=== PATIENT | male | born 1930 | race Caucasian/White ===

== ENCOUNTER 2017-01-19 10:56 | Emergency (ER) | payer MEDICARE ==
[~2017-01-19] VITALS: Ht 188 cm; Wt 86.4 kg
[2017-01-19 11:01] VITALS: BP 103/57; PULSE 87; RESP 15; TEMP 97.6; O2SAT 97
[2017-01-19] MEDS ORDERED: DUTA1CAP2 PO (12:13)
[2017-01-19] MEDS ORDERED: LISI-515 PO (12:13)
[2017-01-19] MEDS ORDERED: ATOR10TA15 PO (12:13)
[2017-01-19] MEDS ORDERED: GLIM2TAB PO (12:13)
[2017-01-19] MEDS ORDERED: DONE10TA7 PO (12:13)
[2017-01-19] MEDS ORDERED: MEMA1TAB2 PO (12:13)
[2017-01-19] MEDS ORDERED: QUET5TAB PO (12:13)
[2017-01-19] MEDS ORDERED: ASPI81CH37 CHEW (12:13)
[2017-01-19] MEDS ORDERED: ESCI20TA PO (12:13)
[2017-01-19] MEDS ORDERED: traMADol HCL 50 MG TAB PO ONE (12:30)
[2017-01-19] MEDS ORDERED: SODIUM CHLORIDE 0.9% FLUSH 10 ML FLUSH IV FLUSH PRN (12:30)
--- NOTE | 2017-01-19 12:30 | PD ---
HPI Chief Complaint: Fall Time Seen by Provider: 12:08 Travel History International Travel<30 days: No Contact w/Intl Traveler<30days: No Traveled to known affect area: No History of Present Illness HPI 86-year-old male with history of dementia here with his stepson for evaluation of left upper quadrant abdominal pain and left-sided rib pain after a fall that occurred 4 days ago. Patient is supposed to walk with a walker, however he does not always do so. He states that he stumbled and fell to the ground. He denies head injury. Since his fall he has been having left sided rib pain and left upper quadrant abdominal pain that is moderate, worse with movement and palpation. He takes aspirin 81 mg daily. No other antiplatelets or anticoagulants. He denies head, neck, or back pain. No pain in his upper or lower extremities. PFSH Past Medical History Blood Disorders: No Cancer: No Cardiovascular Problems: Yes High Cholesterol: Yes Dementia: Yes Diabetes: Yes Patient Takes Glucophage: No Diminished Hearing: No Gastrointestinal Disorders: Yes (PARASITES TO COLON, DIVERTICULOSIS) Genitourinary: Yes Hypertension: Yes Immune Disorder: No Musculoskeletal: No Neurologic: No Psychiatric: No Respiratory: No Tetanus Vaccination: Unknown Influenza Vaccination: Yes Past Surgical History Abdominal Surgery: Yes (APPENDIX) Appendectomy: Yes Eye Surgery: Yes (CATARACTS) Oral Surgery: Yes (TONSILS/ADNOIDS) Social History Alcohol Use: Yes (Wine w/ dinner) Tobacco Use: No Substance Use: No Allergies-Medications (Allergen,Severity, Reaction): Coded Allergies: No Known Allergies (Verified , 01/19/17) Reported Meds & Prescriptions Reported Meds & Active Scripts Active Reported Glimepiride 2 Mg Tab 2 Mg PO DAILY Take with breakfast or first main meal Escitalopram (Escitalopram Oxalate) 20 Mg Tab 20 Mg PO DAILY Lisinopril 20 Mg Tab 20 Mg PO DAILY Quetiapine (Quetiapine Fumarate) 50 Mg Tab 100 Mg PO BID Donepezil 10 Mg Tab 10 Mg PO HS Atorvastatin (Atorvastatin Calcium) 10 Mg Tab 10 Mg PO HS Dutasteride 0.5 Mg Cap 0.5 Mg PO DAILY Memantine 10 Mg Tab 10 Mg PO BID Aspirin Low Dose (Aspirin) 81 Mg Chew 81 Mg CHEW DAILY Review of Systems Except as stated in HPI: all other systems reviewed are Neg Physical Exam Narrative GENERAL: Well-developed, well-nourished, awake, alert, GCS 15, no apparent distress. SKIN: Focused skin assessment warm/dry. Superficial healing abrasion to right anterior scalp which the patient reports was from a previous fall. No lacerations or ecchymosis. HEAD: Atraumatic. Normocephalic. EYES: Pupils equal and round. No scleral icterus. No injection or drainage. ENT: No nasal bleeding or discharge. Mucous membranes pink and moist. NECK: Trachea midline. No JVD. CARDIOVASCULAR: Regular rate and rhythm. RESPIRATORY: No accessory muscle use. Clear to auscultation. Breath sounds equal bilaterally. GASTROINTESTINAL: Abdomen soft, nondistended. Moderate left upper quadrant tenderness without rebound or guarding. Rest of abdomen is soft and nontender. MUSCULOSKELETAL: No obvious deformities. No clubbing. No cyanosis. No edema. Moderate left lateral/lower rib tenderness without step-off, without crepitus, without paradoxical chest wall movement. NEUROLOGICAL: Awake and alert. No obvious cranial nerve deficits. Motor grossly within normal limits. Normal speech. PSYCHIATRIC: Appropriate mood and affect; insight and judgment normal. Data Data Last Documented VS Vital Signs Date Time Temp Pulse Resp B/P (MAP) Pulse Ox O2 Delivery O2 Flow Rate FiO2 01/19/17 13:10 65 14 122/70 (87) 96 Room Air 01/19/17 11:01 97.6 Orders Orders Complete Blood Count With Diff (01/19/17 12:17) Comprehensive Metabolic Panel (01/19/17 12:17) Prothrombin Time / Inr (Pt) (01/19/17 12:17) Act Partial Throm Time (Ptt) (01/19/17 12:17) Iv Access Insert/Monitor (01/19/17 12:17) Ecg Monitoring (01/19/17 12:17) Oximetry (01/19/17 12:17) Sodium Chloride 0.9% Flush (Ns Flush) (01/19/17 12:30) Ct Brain W/O Iv Contrast(Rout) (01/19/17 ) Ct Cerv Spine W/O Contrast (01/19/17 ) Ct Thorax/ Chest W Iv Contrast (01/19/17 ) Ct Abd/Pel W Iv Contrast(Rout) (01/19/17 ) Urinalysis - C+S If Indicated (01/19/17 12:17) Tramadol (Ultram) (01/19/17 12:30) Iohexol 350 Inj (Omnipaque 350 Inj) (01/19/17 13:31) Electrocardiogram (01/19/17 ) Labs Laboratory Tests Test 01/19/17 12:30 01/19/17 14:15 White Blood Count 6.6 TH/MM3 Red Blood Count 3.97 MIL/MM3 Hemoglobin 11.9 GM/DL Hematocrit 35.4 % Mean Corpuscular Volume 89.2 FL Mean Corpuscular Hemoglobin 30.1 PG Mean Corpuscular Hemoglobin Concent 33.8 % Red Cell Distribution Width 12.2 % Platelet Count 201 TH/MM3 Mean Platelet Volume 7.8 FL Neutrophils (%) (Auto) 70.4 % Lymphocytes (%) (Auto) 14.2 % Monocytes (%) (Auto) 11.8 % Eosinophils (%) (Auto) 2.9 % Basophils (%) (Auto) 0.7 % Neutrophils # (Auto) 4.7 TH/MM3 Lymphocytes # (Auto) 0.9 TH/MM3 Monocytes # (Auto) 0.8 TH/MM3 Eosinophils # (Auto) 0.2 TH/MM3 Basophils # (Auto) 0.0 TH/MM3 CBC Comment DIFF FINAL Differential Comment Prothrombin Time 11.3 SEC Prothromb Time International Ratio 1.0 RATIO Activated Partial Thromboplast Time 27.1 SEC Blood Urea Nitrogen 24 MG/DL Creatinine 1.30 MG/DL Random Glucose 76 MG/DL Total Protein 6.5 GM/DL Albumin 3.4 GM/DL Calcium Level 8.5 MG/DL Alkaline Phosphatase 141 U/L Aspartate Amino Transf (AST/SGOT) 15 U/L Alanine Aminotransferase (ALT/SGPT) 18 U/L Total Bilirubin 0.8 MG/DL Sodium Level 138 MEQ/L Potassium Level 4.5 MEQ/L Chloride Level 104 MEQ/L Carbon Dioxide Level 29.2 MEQ/L Anion Gap 5 MEQ/L Estimat Glomerular Filtration Rate 53 ML/MIN Urine Collection Type CLEAN CATCH Urine Color YELLOW Urine Turbidity CLEAR Urine pH 6.0 Urine Specific Globe 1.030 Urine Protein NEG mg/dL Urine Glucose (UA) NEG mg/dL Urine Ketones NEG mg/dL Urine Occult Blood NEG Urine Nitrite NEG Urine Bilirubin NEG Urine Leukocyte Esterase NEG Urine Squamous Epithelial Cells 0-5 /hpf Urine Amorphous Sediment FEW Microscopic Urinalysis Comment CULT NOT INDICATED Urine Collection Time 1415 MDM Medical Decision Making Medical Screen Exam Complete: Yes Emergency Medical Condition: Yes Interpretation(s) EKG: Sinus, rate 58, leftward axis, LBBB which is old Differential Diagnosis Rib fractures, chest wall contusion, intra-abdominal trauma, intracranial trauma , cervical spine injury, pneumothorax, hemothorax Narrative Course Vital signs show heart rate 65, blood pressure 122/70, pulse ox 96% on room air , oral temp of 97.6F. CBC shows WBC 6.6, hemoglobin 11.9, hematocrit 35.4, platelets 201. CMP is unremarkable. UA is not suggestive of UTI. CT head: No acute disease. CT cervical spine: No acute disease. CT thorax: FINDINGS: Biapical parenchymal scarring identified. There is linear atelectasis in the left lower lobe and right lower lobe. Atherosclerotic calcifications are noted. No adenopathy. There is heavy calcification of the coronary arteries. The adrenal glands are normal. There are degenerative changes of the spine. No obvious fractures are seen. CONCLUSION: Atherosclerosis. Atelectasis. CT abdomen pelvis: FINDINGS: There is extensive atherosclerotic calcification of the coronary arteries. No pleural or pericardial effusions. Liver, spleen, pancreas, adrenal glands, gallbladder, left kidney unremarkable. There is a cyst of the right kidney, lobulated measuring 8 x 4.9 cm on image 42. Small fat containing inguinal hernias. Prostate, urinary bladder unremarkable. There is severe diverticulosis of the sigmoid and descending colons. There is no adenopathy or aneurysm. There are degenerative changes of the spine noted.. CONCLUSION: No acute disease. The patient and the patient's stepson were made aware of all findings and were provided a copy of his CT thorax and abdomen pelvis reports. Patient has left lateral chest wall tenderness and left upper quadrant abdominal tenderness after mechanical fall that occurred 4 days ago. I do not believe his symptoms are cardiac related. His EKG shows an old left bundle branch block. He does have extensive coronary artery calcifications, and was advised to follow-up with his primary care physician this week. His pain improved with tramadol. I told him I will give him a prescription for a few tramadol pills with caution. The patient's stepson is a former occupational rehabilitation aide, and has made sure that the house has no rugs or any other objects that the patient can trip on. Patient informed on when to return to the emergency department. They verbalized understanding and agreement with plan. Diagnosis Primary Impression: Contusion of left chest wall Qualified Codes: S20.212A - Contusion of left front wall of thorax, initial encounter Additional Impressions: Fall Qualified Codes: W19.XXXA - Unspecified fall, initial encounter Renal cyst Referrals: Primary Care Physician 3 days Additional Instructions: Follow-up with your primary care physician this week. Return to the emergency department for worsening symptoms or any other concerns. Scripts Tramadol (Tramadol) 50 Mg Tab 50 MG PO Q6H Y for PAIN, #15 TAB 0 Refills Prov: Navid Tavares MD 01/19/17 Disposition: 01 DISCHARGE HOME Condition: Stable Navid Tavares MD Jan 19, 2017 12:30
[2017-01-19 12:43] LABS: AUTOMATED NEUTROPHIL # 4.7 TH/MM3 (1.8-7.7); BASOPHIL % 0.7 % (0.0-2.0); EOSINOPHIL # 0.2 TH/MM3 (0-0.4); EOSINOPHIL % 2.9 % (0.0-4.0); HEMATOCRIT 35.4 % (39.0-51.0); HEMO FLAGS DIFF FINAL; LYMPH % 14.2 % (9.0-44.0); LYMPHOCYTE # 0.9 TH/MM3 (1.0-4.8); MEAN CELL VOLUME 89.2 FL (80.0-100.0); MEAN CORPUSCULAR HEMOGLOBIN 30.1 PG (27.0-34.0); MEAN CORPUSCULAR HGB CONC 33.8 % (32.0-36.0); MONO % 11.8 % (0.0-8.0); NEUT % 70.4 % (16.0-70.0); PLATELET COUNT 201 TH/MM3 (150-450); RED BLOOD COUNT 3.97 MIL/MM3 (4.50-5.90); RED CELL DISTRIBUTION WIDTH 12.2 % (11.6-17.2); WHITE BLOOD COUNT 6.6 TH/MM3 (4.0-11.0)
[2017-01-19 13:00] LABS: CHLORIDE 104 MEQ/L (98-107); POTASSIUM 4.5 MEQ/L (3.5-5.1); SODIUM (NA) 138 MEQ/L (136-145)
[2017-01-19 13:03] LABS: ANION GAP 5 MEQ/L (5-15); BICARBONATE 29.2 MEQ/L (21.0-32.0)
[2017-01-19 13:04] LABS: APTT (PATIENT) 27.1 SEC (24.3-30.1); BLOOD UREA NITROGEN 24 MG/DL (7-18); PROTHROMBIN TIME - PATIENT 11.3 SEC (9.8-11.6)
[2017-01-19 13:06] LABS: ALT (GPT) 18 U/L (12-78)
[2017-01-19 13:07] LABS: AST (GOT) 15 U/L (15-37); GLOMERULAR FILTRATION RATE 53 ML/MIN (>89)
[2017-01-19 13:08] LABS: TOTAL BILIRUBIN ADULT 0.8 MG/DL (0.2-1.0)
[2017-01-19 13:09] LABS: ALKALINE PHOSPHATASE 141 U/L (45-117)
[2017-01-19 13:10] VITALS: BP 122/70; PULSE 65; RESP 14; O2SAT 96
[2017-01-19] MEDS ORDERED: IOHEXOL 350 MG/ML 10 ML VIAL (for RAD DIAG) IVCONTRAST ONE (13:31)
--- NOTE | 2017-01-19 13:44 | RADRPT ---
EXAM DATE/TIME: 01/19/2017 13:19 [facility] COMPARISON: No previous studies available for comparison. INDICATIONS : Fell a few days ago. Left sided pain. RADIATION DOSE: 64.68 CTDIvol (mGy) MEDICAL HISTORY : Hypertension. Hypercholesterolemia. Diverticulosis. SURGICAL HISTORY : Appendectomy. ENCOUNTER: Initial ACUITY: 4 - 6 days PAIN SCALE: 5/10 LOCATION: Left cranial TECHNIQUE: Multiple contiguous axial images were obtained of the head. Using automated exposure control and adj ustment of the mA and/or kV according to patient size, radiation dose was kept as low as reasonably a chievable to obtain optimal diagnostic quality images. DICOM format image data is available electro nically for review and comparison. FINDINGS: There is atrophy identified and remote lacunar infarcts in the basal ganglia and right thalamus. Patc hy periventricular white matter disease, likely related to chronic microvascular ischemic disease. Th ere is no hemorrhage. No mass or acute infarct. No obvious fractures. CONCLUSION: No acute disease. Sonny Hickey MD on January 19, 2017 at 13:42 Board Certified Radiologist. This report was verified electronically.
--- NOTE | 2017-01-19 13:47 | RADRPT ---
EXAM DATE/TIME: 01/19/2017 13:25 [facility] COMPARISON: CT ABDOMEN & PELVIS W CONTRAST, January 19, 2017, 13:25. INDICATIONS : Fell a few days ago. Left sided pain. IV CONTRAST: 90 cc Omnipaque 350 (iohexol) IV ; Cumulative dose for multiple exams. RADIATION DOSE: 20.78 CTDIvol (mGy) ; Combined studies - Thorax/Abdomen/Pelvis MEDICAL HISTORY : Hypertension. Hypercholesterolemia. Diverticulosis. SURGICAL HISTORY : Appendectomy. ENCOUNTER: Initial ACUITY: 4 - 6 days PAIN SCALE: 4/10 LOCATION: Left chest TECHNIQUE: Volumetric scanning of the chest was performed. Using automated exposure control and adjustment of t he mA and/or kV according to patient size, radiation dose was kept as low as reasonably achievable to obtain optimal diagnostic quality images. DICOM format image data is available electronically for review and comparison. Follow-up recommendations for detected pulmonary nodules are based at a minimum on nodule size and pa tient risk factors according to Fleischner Society Guidelines. FINDINGS: Biapical parenchymal scarring identified. There is linear atelectasis in the left lower lobe and righ t lower lobe. Atherosclerotic calcifications are noted. No adenopathy. There is heavy calcification o f the coronary arteries. The adrenal glands are normal. There are degenerative changes of the spine. No obvious fractures are seen. CONCLUSION: Atherosclerosis. Atelectasis. Sonny Hickey MD on January 19, 2017 at 13:43 Board Certified Radiologist. This report was verified electronically.
--- NOTE | 2017-01-19 13:50 | RADRPT ---
EXAM DATE/TIME: 01/19/2017 13:25 [facility] COMPARISON: CT THORAX W CONTRAST, January 19, 2017, 13:25. INDICATIONS : Fell a few days ago. Left sided pain. IV CONTRAST: 90 cc Omnipaque 350 (iohexol) IV ; Cumulative dose for multiple exams. ORAL CONTRAST: No oral contrast ingested. RADIATION DOSE: 20.78 CTDIvol (mGy) ; Combined studies - Thorax/Abdomen/Pelvis MEDICAL HISTORY : Hypertension. Diverticulosis. Hypercholesterolemia. SURGICAL HISTORY : Appendectomy. ENCOUNTER: Initial ACUITY: 4 - 6 days PAIN SCALE: 6/10 LOCATION: Left abdomen TECHNIQUE: Volumetric scanning of the abdomen and pelvis was performed. Using automated exposure control and ad justment of the mA and/or kV according to patient size, radiation dose was kept as low as reasonably achievable to obtain optimal diagnostic quality images. DICOM format image data is available electro nically for review and comparison. FINDINGS: There is extensive atherosclerotic calcification of the coronary arteries. No pleural or pericardial effusions. Liver, spleen, pancreas, adrenal glands, gallbladder, left kidney unremarkable. There is a cyst of the right kidney, lobulated measuring 8 x 4.9 cm on image 42. Small fat containing inguinal hernias. Prostate, urinary bladder unremarkable. There is severe diverticulosis of the sigmoid and de scending colons. There is no adenopathy or aneurysm. There are degenerative changes of the spine note d.. CONCLUSION: No acute disease. 1. Sonny Hickey MD on January 19, 2017 at 13:46 Board Certified Radiologist. This report was verified electronically.
[2017-01-19 14:24] LABS: BLOOD, URINE NEG (NEG); GLUCOSE,URINE NEG (NEG); KETONE, URINE NEG (NEG); NITRITE,URINE NEG (NEG)
[2017-01-19 14:25] LABS: METHOD OF COLLECTION CLEAN CATCH; URINE COLOR YELLOW (YELLW/STRAW)
[2017-01-19 14:36] LABS: COMMENT (UR) CULT NOT INDICATED; COMMENT2 (UR) MUCOUS PRESENT; CULTURE IF INDICATED CULT NOT INDICATED; SQUAMOUS EPITHELIAL CELL URINE 0-5 /hpf (0-5)
--- NOTE | 2017-01-19 14:41 | RADRPT ---
EXAM DATE/TIME: 01/19/2017 13:19 [facility] COMPARISON: No previous studies available for comparison. INDICATIONS : Fell a few days ago. Left sided pain. RADIATION DOSE: 26.74 CTDIvol (mGy) MEDICAL HISTORY : Hypertension. Hypercholesterolemia. Diverticulosis. SURGICAL HISTORY : Appendectomy. ENCOUNTER: Initial ACUITY: 4 - 6 days PAIN SCALE: 5/10 LOCATION: Left neck TECHNIQUE: Volumetric scanning of the cervical spine was performed. Multiplanar reconstructions in the sagittal, coronal and oblique axial planes were performed. Using automated exposure control and adjustment o f the mA and/or kV according to patient size, radiation dose was kept as low as reasonably achievable to obtain optimal diagnostic quality images. DICOM format image data is available electronically f or review and comparison. FINDINGS: There is normal alignment. No prevertebral soft tissue swelling. The odontoid process is intact. The lateral masses of C1 align appropriately with C2. There are mild to moderate facet hypertrophic ware es seen bilaterally greatest at C4-5 and C3-4. Moderate disc space narrowing at C5-6 and C6-7 identif y with mild multilevel osteophyte formation. The cervicothoracic junction is approximated. There are no compression deformities. No fracture or listhesis. CONCLUSION: No acute disease. Sonny Hickey MD on January 19, 2017 at 14:36 Board Certified Radiologist. This report was verified electronically.
[2017-01-19] MEDS ORDERED: TRAM50TA PO (14:50)
[2017-01-19 14:55] VITALS: BP 118/76; PULSE 88; RESP 16; O2SAT 95
--- NOTE | 2017-01-20 20:00 | EKG ---
Date Performed: 01/19/2017 Time Performed: 14:19:43 PTAGE: 86 years EKG: SINUS BRADYCARDIA LEFT BUNDLE BRANCH BLOCK ABNORMAL ECG PREVIOUS TRACING : 01/19/2017 14.19 Compared to prior tracing no significant change DOCTOR: José Antonio Wilder Interpretating Date/Time 01/21/2017 06:55:20
== END 2017-01-19 15:00 | disposition home or self-care (01) ==
LOC: PHED 10:56
DX: S20.212A Contusion of left front wall of thorax, initial encounter (principal); N28.1 Cyst of kidney, acquired; I10 Essential (primary) hypertension; W01.0XXA Fall on same level from slipping, tripping and stumbling without subsequent striking against object, initial encounter
CPT/HCPCS: 70450; 71260; 72125; 74177; 80053; 81001; 85025; 85610; 85730; 93005; 99285; Q9967

== ENCOUNTER 2017-06-01 09:54 | Inpatient (IN) | payer MEDICARE ==
[~2017-06-01] VITALS: Ht 188 cm; Wt 90.1 kg
[~2017-06-01 09:54] MED LIST: ASPI81CH6 CHEW; ATOR10TA15 PO; DONE10TA7 PO; DUTA1CAP2 PO; ESCI20TA PO; GLIM2TAB PO; LISI-515 PO; MEMA1TAB2 PO; QUET5TAB PO; TRAM50TA PO
[2017-06-01 10:14] VITALS: BP 118/58; PULSE 62; RESP 18; TEMP 97.8; O2SAT 98
[2017-06-01 10:15] VITALS: O2SAT 98
[2017-06-01] MEDS ORDERED: SODIUM CHLORIDE 0.9% FLUSH 10 ML FLUSH IVF PRN (10:15)
[2017-06-01] MEDS ORDERED: ONDANSETRON HCL 4 MG/2 ML VIAL IVP ONE (10:15)
[2017-06-01] MEDS ORDERED: MORPHINE SULFATE 2 MG/ML INJ IV PUSH ONE (10:15)
--- NOTE | 2017-06-01 10:15 | PD ---
HPI Chief Complaint: Fall Time Seen by Provider: 10:09 Travel History International Travel<30 days: No Contact w/Intl Traveler<30days: No Traveled to known affect area: No History of Present Illness HPI S/P FALL WHILE AT HOME, TRIP AND FALL, NO LOC, LANDED ON RIGHT HIP AREA AND PAINFUL TO MOVE, EMS HAD TO USE [facility] TO TRANSPORT, PATIENT DECLINED PAIN MEDICATION EN ROUTE. PFSH Past Medical History Blood Disorders: No Cancer: No Cardiovascular Problems: Yes High Cholesterol: Yes Dementia: Yes Diabetes: Yes Diminished Hearing: No Gastrointestinal Disorders: Yes (PARASITES TO COLON, DIVERTICULOSIS) Genitourinary: Yes Hypertension: Yes Immune Disorder: No Musculoskeletal: No Neurologic: No Psychiatric: No Respiratory: No Past Surgical History Abdominal Surgery: Yes (APPENDIX) Appendectomy: Yes Eye Surgery: Yes (CATARACTS) Oral Surgery: Yes (TONSILS/ADNOIDS) Social History Alcohol Use: Yes (Wine w/ dinner) Tobacco Use: No Substance Use: No Allergies-Medications (Allergen,Severity, Reaction): Coded Allergies: No Known Allergies (Verified , 01/19/17) Reported Meds & Prescriptions Reported Meds & Active Scripts Active Tramadol (Tramadol HCl) 50 Mg Tab 50 Mg PO Q6H PRN Reported Glimepiride 2 Mg Tab 2 Mg PO DAILY Take with breakfast or first main meal Escitalopram (Escitalopram Oxalate) 20 Mg Tab 20 Mg PO DAILY Lisinopril 20 Mg Tab 20 Mg PO DAILY Quetiapine (Quetiapine Fumarate) 50 Mg Tab 100 Mg PO BID Donepezil 10 Mg Tab 10 Mg PO HS Atorvastatin (Atorvastatin Calcium) 10 Mg Tab 10 Mg PO HS Dutasteride 0.5 Mg Cap 0.5 Mg PO DAILY Memantine 10 Mg Tab 10 Mg PO BID Aspirin Low Dose (Aspirin) 81 Mg Chew 81 Mg CHEW DAILY Review of Systems Except as stated in HPI: all other systems reviewed are Neg Musculoskeletal: Positive: Limited ROM, Pain (RT HIP) Physical Exam Narrative GENERAL: SKIN: Warm and dry. HEAD: Atraumatic. Normocephalic. EYES: Pupils equal and round. No scleral icterus. No injection or drainage. ENT: No nasal bleeding or discharge. Mucous membranes pink and moist. NECK: Trachea midline. No JVD. CARDIOVASCULAR: Regular rate and rhythm. RESPIRATORY: No accessory muscle use. Clear to auscultation. Breath sounds equal bilaterally. GASTROINTESTINAL: Abdomen soft, non-tender, nondistended. Hepatic and splenic margins not palpable. MUSCULOSKELETAL: Extremities without clubbing, cyanosis, or edema. EXTERNALLY ROTATED RT LE, DP PULSES WNL AND EQUAL BILATERALLY. NEUROLOGICAL: Awake and alert. No obvious cranial nerve deficits. Motor grossly within normal limits. Five out of 5 muscle strength in the arms and legs. Normal speech. PSYCHIATRIC: Appropriate mood and affect; insight and judgment normal. Data Data Orders Orders Complete Blood Count With Diff (06/01/17 10:10) Comprehensive Metabolic Panel (06/01/17 10:10) Prothrombin Time / Inr (Pt) (06/01/17 10:10) Act Partial Throm Time (Ptt) (06/01/17 10:10) Urinalysis - C+S If Indicated (06/01/17 10:10) Chest, Single Ap (06/01/17 10:10) Hip, Uni(Ap&Lat) W Ap Pelvis (06/01/17 10:10) Iv Access Insert/Monitor (06/01/17 10:10) Urinary Catheter Insert/Apply (06/01/17 10:10) Oximetry (06/01/17 10:10) Ecg Monitoring (06/01/17 10:10) Morphine Inj (Morphine Inj) (06/01/17 10:15) Ondansetron Inj (Zofran Inj) (06/01/17 10:15) Sodium Chloride 0.9% Flush (Ns Flush) (06/01/17 10:15) MDM Medical Decision Making Medical Screen Exam Complete: Yes Emergency Medical Condition: Yes Medical Record Reviewed: Yes Blaise Reed MD Jun 01, 2017 10:15
[2017-06-01 10:30] LABS: AUTOMATED NEUTROPHIL # 6.6 TH/MM3 (1.8-7.7); BASOPHIL % 0.4 % (0.0-2.0); EOSINOPHIL # 0.2 TH/MM3 (0-0.4); EOSINOPHIL % 2.2 % (0.0-4.0); HEMATOCRIT 34.2 % (39.0-51.0); LYMPH % 11.7 % (9.0-44.0); MEAN CELL VOLUME 91.2 FL (80.0-100.0); MEAN CORPUSCULAR HEMOGLOBIN 32.1 PG (27.0-34.0); MEAN CORPUSCULAR HGB CONC 35.2 % (32.0-36.0); MEAN PLATELET VOLUME 8.7 FL (7.0-11.0); MONO % 7.4 % (0.0-8.0); MONOCYTE # 0.6 TH/MM3 (0-0.9); NEUT % 78.3 % (16.0-70.0); PLATELET COUNT 197 TH/MM3 (150-450); RED BLOOD COUNT 3.75 MIL/MM3 (4.50-5.90); RED CELL DISTRIBUTION WIDTH 13.8 % (11.6-17.2); WHITE BLOOD COUNT 8.5 TH/MM3 (4.0-11.0)
[2017-06-01] MEDS ORDERED: QUET5TAB PO (10:36)
[2017-06-01 10:42] LABS: ALBUMIN 3.5 GM/DL (3.4-5.0); AST (GOT) 15 U/L (15-37); BICARBONATE 25.9 MEQ/L (21.0-32.0); BLOOD UREA NITROGEN 31 MG/DL (7-18); CALCIUM 8.6 MG/DL (8.5-10.1); CHLORIDE 106 MEQ/L (98-107); CREATININE 1.61 MG/DL (0.60-1.30); GLOMERULAR FILTRATION RATE 41 ML/MIN (>89); GLUCOSE,RANDOM 141 MG/DL (74-106); SODIUM (NA) 139 MEQ/L (136-145)
[2017-06-01 10:43] LABS: ALT (GPT) 17 U/L (12-78)
[2017-06-01 10:45] LABS: ALKALINE PHOSPHATASE 113 U/L (45-117); INTERNATIONAL NORMALIZED RATIO 1.1 RATIO; PROTHROMBIN TIME - PATIENT 10.9 SEC (9.8-11.6); TOTAL BILIRUBIN ADULT 0.6 MG/DL (0.2-1.0); TOTAL PROTEIN 6.4 GM/DL (6.4-8.2)
[2017-06-01 11:00] VITALS: BP 116/58; PULSE 68; RESP 18; O2SAT 98
[2017-06-01 11:22] LABS: BILIRUBIN, URINE NEG (NEG); BLOOD, URINE NEG (NEG); GLUCOSE,URINE TRACE mg/dL (NEG); KETONE, URINE NEG (NEG); NITRITE,URINE NEG (NEG); PH, URINE 5.5 (5.0-8.5); URINE COLOR YELLOW (YELLW/STRAW); URINE LEUKOCYTE ESTERASE NEG (NEG)
--- NOTE | 2017-06-01 11:30 | RADRPT ---
EXAM DATE/TIME: 06/01/2017 10:29 [facility] COMPARISON: No previous studies available for comparison. INDICATIONS : Right hip pain due to fall. MEDICAL HISTORY : Hypertension. Hypercholesterolemia. Diverticulosis. SURGICAL HISTORY : Appendectomy. ENCOUNTER: Initial ACUITY: 1 day PAIN SCORE: 8/10 LOCATION: Right Hip. FINDINGS: There is a complete intertrochanteric fracture with avulsed lesser trochanter. CONCLUSION: Intertrochanteric fracture on the right. Peggy Parrish MD on June 01, 2017 at 11:28 Board Certified Radiologist. This report was verified electronically.
[2017-06-01] MEDS ORDERED: SODIUM CHLORIDE 0.9% FLUSH 10 ML FLUSH IV FLUSH PRN (11:45)
[2017-06-01] MEDS ORDERED: NALOXONE HCL 0.4 MG/ML AMP IV PUSH PRN (11:45)
[2017-06-01 12:00] VITALS: BP 117/52; PULSE 65; RESP 16; TEMP 97; O2SAT 97
--- NOTE | 2017-06-01 12:00 | RADRPT ---
EXAM DATE/TIME: 06/01/2017 10:24 [facility] COMPARISON: No previous studies available for comparison. INDICATIONS : Chest pain deu to fall. MEDICAL HISTORY : Hypertension. Hypercholesterolemia. Diverticulosis. SURGICAL HISTORY : Appendectomy. ENCOUNTER: Initial ACUITY: 1 day PAIN SCORE: 8/10 LOCATION: Bilateral chest FINDINGS: The cardiac silhouette is enlarged in transverse diameter. The lungs are free of acute parenchymal op acity. No effusions are identified. There is prominence of the aortic knob is with calcification luis carlos acteristic of atherosclerotic vascular disease. CONCLUSION: Cardiomegaly. No acute pulmonary disease. Claudio Boyce MD on June 01, 2017 at 11:43 Board Certified Radiologist. This report was verified electronically.
--- NOTE | 2017-06-01 15:06 | HHI.HP ---
[facility] ZITA Eaton Admission Diagnosis RIGHT INTERTROCHANTERIC FX Diagnoses: Travel History International Travel<30 Days: No Contact w/Intl Traveler <30 Da: No Traveled to Known Affected Are: No History of Present Illness hx from patient, ER MD communication and review of med records i have dementia but i am usually ok but now has been falling - at least 4-5x now - in past 3 months this time i could not get up, usually i could pain at right hip gets dizziness before falls dizziness is usually when he sits up from a sitting position. no ear pain/ ringing/ no discharge no fever no spinning of rooms lives with elderly , stepson usually checks in on them little bit of redness in urine this last time- he thinks Review of Systems Except as stated in HPI: all other systems reviewed are Neg Past Family Social History Past Medical History htn dm hyperlipidemia bph anxiety/depression dementia Past Surgical History appendectomy left patella fx Allergies: Coded Allergies: No Known Allergies (Verified Allergy, Unknown, 06/01/17) Family History adopted no family hx that he knows of Social History quit smoking at age 42yo no drinking etoh heavily- only one glass of white win a day no drugs lives with , step son has been helping them out no longer driving, a neurologist reported him to police and his license taken away according to him Physical Exam Vital Signs Vital Signs Date Time Temp Pulse Resp B/P (MAP) Pulse Ox O2 Delivery O2 Flow Rate FiO2 06/01/17 12:06 06/01/17 12:00 97.0 65 16 117/52 (73) 97 06/01/17 11:00 68 18 116/58 (77) 98 Room Air 06/01/17 10:15 98 Room Air 06/01/17 10:14 97.8 62 18 118/58 (78) 98 Room Air Physical Exam GENERAL: This is a well-nourished, well-developed patient, in no apparent distress. SKIN: No rashes, ecchymoses or lesions. Cool and dry. HEAD: Atraumatic. Normocephalic. No temporal or scalp tenderness. EYES: No scleral icterus. No injection or drainage. ENT: Nose without bleeding, purulent drainage or septal hematoma. Airway patent. NECK: Trachea midline. No JVD CARDIOVASCULAR: Regular rate and rhythm without murmurs, gallops, or rubs. RESPIRATORY: Clear to auscultation. Breath sounds equal bilaterally. No wheezes , rales, or rhonchi. GASTROINTESTINAL: Abdomen soft, non-tender, nondistended. No guarding. MUSCULOSKELETAL: Extremities without clubbing, cyanosis, or edema. No calf tenderness. pain at right hip on movement NEUROLOGICAL: Awake and alert. Motor and sensory grossly within normal limits. Normal speech Laboratory Laboratory Tests Test 06/01/17 10:15 06/01/17 10:45 White Blood Count 8.5 Red Blood Count 3.75 Hemoglobin 12.0 Hematocrit 34.2 Mean Corpuscular Volume 91.2 Mean Corpuscular Hemoglobin 32.1 Mean Corpuscular Hemoglobin Concent 35.2 Red Cell Distribution Width 13.8 Platelet Count 197 Mean Platelet Volume 8.7 Neutrophils (%) (Auto) 78.3 Lymphocytes (%) (Auto) 11.7 Monocytes (%) (Auto) 7.4 Eosinophils (%) (Auto) 2.2 Basophils (%) (Auto) 0.4 Neutrophils # (Auto) 6.6 Lymphocytes # (Auto) 1.0 Monocytes # (Auto) 0.6 Eosinophils # (Auto) 0.2 Basophils # (Auto) 0.0 CBC Comment DIFF FINAL Differential Comment Prothrombin Time 10.9 Prothromb Time International Ratio 1.1 Activated Partial Thromboplast Time 20.5 Blood Urea Nitrogen 31 Creatinine 1.61 Random Glucose 141 Total Protein 6.4 Albumin 3.5 Calcium Level 8.6 Alkaline Phosphatase 113 Aspartate Amino Transf (AST/SGOT) 15 Alanine Aminotransferase (ALT/SGPT) 17 Total Bilirubin 0.6 Sodium Level 139 Potassium Level 5.1 Chloride Level 106 Carbon Dioxide Level 25.9 Anion Gap 7 Estimat Glomerular Filtration Rate 41 Urine Color YELLOW Urine Turbidity CLEAR Urine pH 5.5 Urine Specific [place] 1.017 Urine Protein NEG Urine Glucose (UA) TRACE Urine Ketones NEG Urine Occult Blood NEG Urine Nitrite NEG Urine Bilirubin NEG Urine Urobilinogen LESS THAN 2.0 Urine Leukocyte Esterase NEG Urine RBC 1 Urine WBC LESS THAN 1 Microscopic Urinalysis Comment CATH-CULT NOT IND Result Diagram: 06/01/17 1015 06/01/17 1015 Imaging Last 48 hours Impressions Hip and Pelvis X-Ray 06/01/17 1010 Signed Impressions: Service Date/Time: Thursday, June 01, 2017 10:29 - CONCLUSION: Intertrochanteric fracture on the right. Peggy Parrish MD Chest X-Ray 06/01/17 1010 Signed Impressions: Service Date/Time: Thursday, June 01, 2017 10:24 - CONCLUSION: Cardiomegaly. No acute pulmonary disease. MD Mey Lay VTE Risk Assessment Caprini VTE Risk Assessment: Mod/High Risk (score >= 2) Caprini Risk Assessment Model Point Value = 1 Point Value = 2 Point Value = 3 Point Value = 5 Age 41-60 Minor surgery BMI > 25 kg/m2 Swollen legs Varicose veins or History of unexplained or recurrent spontaneous Oral contraceptives or hormone replacement Sepsis (< 1 month) Serious lung disease, including pneumonia (< 1 month) Abnormal pulmonary function Acute myocardial infarction Congestive heart failure (< 1 month) History of inflammatory bowel disease Medical patient at bed rest Age 61-74 Arthroscopic surgery Major open surgery (> 45 min) Laparoscopic surgery (> 45 min) Malignancy Confined to bed (> 72 hours) Immobilizing plaster cast Central venous access Age >= 75 History of VTE Family history of VTE Factor V Leiden Prothrombin [id number] Lupus anticoagulant Anticardiolipin antibodies Elevated serum homocysteine Heparin-induced thrombocytopenia Other congenital or acquired thrombophilia Stroke (< 1 month) Elective arthroplasty Hip, pelvis, or leg fracture Acute spinal cord injury (< 1 month) Prophylaxis Regimen Total Risk Factor Score Risk Level Prophylaxis Regimen 0-1 Low Early ambulation 2 Moderate Order ONE of the following: *Sequential Compression Device (SCD) *Heparin 5000 units SQ BID 3-4 Higher Order ONE of the following medications: *Heparin 5000 units SQ TID *Enoxaparin/Lovenox 40 mg SQ daily (WT < 150 kg, CrCl > 30 mL/min) *Enoxaparin/Lovenox 30 mg SQ daily (WT < 150 kg, CrCl > 10-29 mL/min) *Enoxaparin/Lovenox 30 mg SQ BID (WT < 150 kg, CrCl > 30 mL/min) AND/OR *Sequential Compression Device (SCD) 5 or more Highest Order ONE of the following medications: *Heparin 5000 units SQ TID (Preferred with Epidurals) *Enoxaparin/Lovenox 40 mg SQ daily (WT < 150 kg, CrCl > 30 mL/min) *Enoxaparin/Lovenox 30 mg SQ daily (WT < 150 kg, CrCl > 10-29 mL/min) *Enoxaparin/Lovenox 30 mg SQ BID (WT < 150 kg, CrCl > 30 mL/min) AND *Sequential Compression Device (SCD) Assessment and Plan Assessment and Plan Impression: s/p fall right hip fx dizziness - r/o orthostatic lbbb on ekg- reviewed old ekg from december 2016- not new, was present then htn dm hyperlipidemia bph anxiety/depression dementia Plan: ortho consulted npo past midnight start d5 past midnight does not want pain meds hold antihypertensives pain control with tramadol resume other meds OR In am DVT Prophylaxis chemically post op, for now SCD Discussed Condition With patient, ER MD, nursing staff Physician Certification 2 Midnight Certification Type: Admission for Inpatient Services Order for Inpatient Services The services are ordered in accordance with Medicare regulations or non- Medicare payer requirements, as applicable. In the case of services not specified as inpatient-only, they are appropriately provided as inpatient services in accordance with the 2-midnight benchmark. Estimated LOS (days): 3 days is the estimated time the patient will need to remain in the hospital, assuming treatment plan goals are met and no additional complications. Post-Hospital Plan: Not yet determined Bobo Villa MD Jun 01, 2017 15:06
[2017-06-01] MEDS ORDERED: DEXTROSE 50% IN WATER 50 ML VIAL(D50) IV PUSH PRN (15:15)
[2017-06-01] MEDS ORDERED: ACETAMINOPHEN 325 MG TAB PO PRN (15:15)
[2017-06-01] MEDS ORDERED: traMADol HCL 50 MG TAB PO PRN (15:15)
[2017-06-01] MEDS ORDERED: GLUCAGON 1 MG/ML VIAL OTHER PRN (15:15)
[2017-06-01 15:45] VITALS: BP 96/57; PULSE 83; RESP 17; TEMP 98; O2SAT 98
[2017-06-01 20:00] VITALS: BP 106/56; PULSE 84; RESP 20; TEMP 98.9; O2SAT 94
[2017-06-01] MEDS ORDERED: LACTATED RINGER'S 1000 ML IV PRN (21:45)
[2017-06-01] MEDS ORDERED: POVIDONE IODINE 5% (ANTISEPSIS KIT) 4 APPLICATIONS EACH NARE PRN (21:45)
[2017-06-01] MEDS ORDERED: SODIUM CHLORID 0.9% 500 ML IV PRN (21:45)
[2017-06-01] MEDS ORDERED: CHLORHEXIDINE GLUCONATE 2 % 1 PACK (2 CLOTHS) TOPICAL PRN (21:45)
[2017-06-01] MEDS: ATORVASTATIN 10 MG TAB PO SCH (23:31)
[2017-06-01] MEDS: MEMANTINE HCL 10 MG TAB PO SCH (23:31)
[2017-06-01] MEDS: DONEPEZIL HCL 5 MG TAB PO SCH (23:31)
[2017-06-01] MEDS: SODIUM CHLORIDE 0.9% FLUSH 10 ML FLUSH IV FLUSH SCH (23:32)
[2017-06-01] MEDS ORDERED: DEXT 5%-NACL 0.45% 1000 ML INJ 1,000 ML IV SCH (23:55)
[2017-06-02] VITALS (9 sets, daily range): BP systolic 77–113; BP diastolic 46–71; PULSE 68–105; RESP 16–20; TEMP 96.3–99.8; O2SAT 92–98
[2017-06-02 05:48] LABS: AUTOMATED NEUTROPHIL # 8.7 TH/MM3 (1.8-7.7); BASOPHIL % 0.3 % (0.0-2.0); EOSINOPHIL # 0.1 TH/MM3 (0-0.4); EOSINOPHIL % 0.8 % (0.0-4.0); HEMATOCRIT 29.3 % (39.0-51.0); HEMOGLOBIN 10.2 GM/DL (13.0-17.0); LYMPH % 9.3 % (9.0-44.0); MEAN CELL VOLUME 90.8 FL (80.0-100.0); MEAN CORPUSCULAR HEMOGLOBIN 31.6 PG (27.0-34.0); MEAN CORPUSCULAR HGB CONC 34.8 % (32.0-36.0); MEAN PLATELET VOLUME 8.8 FL (7.0-11.0); MONO % 12.7 % (0.0-8.0); MONOCYTE # 1.4 TH/MM3 (0-0.9); NEUT % 76.9 % (16.0-70.0); PLATELET COUNT 176 TH/MM3 (150-450); RED BLOOD COUNT 3.23 MIL/MM3 (4.50-5.90); RED CELL DISTRIBUTION WIDTH 13.7 % (11.6-17.2); WHITE BLOOD COUNT 11.3 TH/MM3 (4.0-11.0)
[2017-06-02 06:07] LABS: BICARBONATE 26.4 MEQ/L (21.0-32.0); CALCIUM 8.1 MG/DL (8.5-10.1); CREATININE 1.65 MG/DL (0.60-1.30)
--- NOTE | 2017-06-02 06:34 | PD.ORT.PN ---
Subjective Subjective Remarks Slip and fall at home. Right hip pain. Unable to ambulate. No other associated complaints Objective Vitals Vital Signs Date Time Temp Pulse Resp B/P (MAP) Pulse Ox O2 Delivery O2 Flow Rate FiO2 06/02/17 06:17 98.7 68 20 107/71 (83) 95 06/02/17 04:00 97.3 87 20 113/54 (73) 93 106/57 (73) 06/02/17 00:00 99.8 86 20 108/58 (75) 94 06/01/17 20:00 98.9 84 20 106/56 (73) 94 06/01/17 15:45 98.0 83 17 96/57 (70) 98 06/01/17 12:06 06/01/17 12:00 97.0 65 16 117/52 (73) 97 06/01/17 11:00 68 18 116/58 (77) 98 Room Air 06/01/17 10:15 98 Room Air 06/01/17 10:14 97.8 62 18 118/58 (78) 98 Room Air I/O 06/01/17 06/01/17 06/01/17 06/02/17 06/02/17 06/02/17 07:00 15:00 23:00 07:00 15:00 23:00 Intake Total 0 ml 300 ml Output Total 600 ml 300 ml 800 ml Balance -600 ml 0 ml -800 ml Intake Oral 0 ml 300 ml Output Urine Total 600 ml 300 ml 800 ml # Bowel Movements 0 0 Result Diagram: 06/02/17 0458 06/02/17 0458 Other Results Laboratory Tests Test 06/01/17 10:15 Prothromb Time International Ratio 1.1 RATIO Prothrombin Time 10.9 SEC (9.8-11.6) Imaging Last 24 hours Impressions Hip and Pelvis X-Ray 06/01/17 1010 Signed Impressions: Service Date/Time: Thursday, June 01, 2017 10:29 - CONCLUSION: Intertrochanteric fracture on the right. Peggy Parrish MD Chest X-Ray 06/01/17 1010 Signed Impressions: Service Date/Time: Thursday, June 01, 2017 10:24 - CONCLUSION: Cardiomegaly. No acute pulmonary disease. Claudio Boyce MD Objective Remarks Bilateral upper extremities: Full range of motion and neurovascularly intact Left lower extremity full range of motion and neurovascularly intact Right lower extremity: Pain to palpation over hip. Pain with any movement of hip. Skin is intact. No pain with knee or ankle range of motion. Distally intact sensation good capillary refills. Active dorsiflexion and plantar flexion of foot Assessment & Plan Assessment and Plan Right intertrochanteric femur fracture Nothing by mouth Surgery this morning for reduction of right femur intramedullary fazal fixation Sign consents Lan White Jr. Jun 02, 2017 06:34
[2017-06-02] MEDS ORDERED: HYDR-3580 PO (06:36)
[2017-06-02] MEDS ORDERED: CALCTAB19 PO (06:36)
[2017-06-02] MEDS ORDERED: VITA500012 PO (06:36)
[2017-06-02] MEDS ORDERED: XARE10TA PO (06:36)
[2017-06-02] MEDS ORDERED: WALKER/ADULT/FO1 MIS (06:36)
[2017-06-02] MEDS ORDERED: ACETAMINOPHEN 1000 MG/100 ML 100 ML IV ONE (06:48)
[2017-06-02] MEDS ORDERED: VANCOMYCIN HCL 1000 MG VIAL ONE (07:12)
[2017-06-02] MEDS ORDERED: ceFAZolin 2 GM PREMIX 50 ML ONE (07:12)
[2017-06-02] MEDS ORDERED: SODIUM CHLOR 0.9% 250 ML INJ 250 ML ONE (07:13)
[2017-06-02] MEDS ORDERED: BUPIVACAINE/EPINEPHRINE 0.25% PF 30 ML VIAL ONE (07:13)
[2017-06-02] MEDS ORDERED: FAMOTIDINE 20 MG/2 ML VIAL ONE (07:18)
--- NOTE | 2017-06-02 07:35 | MB ---
cc: YAJAIRA CARLISLE DATE OF ADMISSION 06/01/2017 DATE OF CONSULTATION 06/02/2017 REASON FOR CONSULTATION Right hip intertrochanteric fracture. CONSULTING PHYSICIAN Dr. Pato Falk. HISTORY Angel is an 87-year-old male who had a fall. He states that he has had multiple falls in the last three months. After this fall he had immediate right hip pain. He is unable to stand or ambulate. He denies dizziness, syncope or loss of consciousness. He lives at home with his . He is awake but does have some early dementia. His only complaint is his right hip. The pain is worse with movement. PAST MEDICAL HISTORY ILLNESSES 1. Hypertension. 2. Diabetes. 3. High cholesterol. 4. Early dementia. 5. Depression. 6. Anxiety. 7. BPH. SURGERIES 1. Appendectomy. 2. Left patella ORIF. ALLERGIES No known drug allergies. FAMILY HISTORY The patient was adopted. He does not know his family history. SOCIAL HISTORY The patient quit smoking at age 42. He drinks occasional wine. He denies drug use. Lives at home with his . REVIEW OF SYSTEMS The patient denies headache, visual changes, neck pain, chest pain, shortness of breath, abdominal pain, nausea, vomiting, recent weight loss, numbness or tingling of extremities. He complains of right hip pain. The pain is worse with movement. PHYSICAL EXAMINATION GENERAL: The patient is a thin, 87-year-old male. He is in no acute distress. He is awake. He is thin but appears well-developed and well-nourished. VITAL SIGNS: Temperature 98.7, pulse 68, respirations 20, blood pressure 107/71, O2 sat 95% on room air. HEAD: The patient is normocephalic. Pupils are equal. NECK: Soft, nontender. Trachea is midline. ABDOMEN: Soft, nontender, nondistended. EXTREMITIES: Examination of the bilateral upper extremities reveals no pain with shoulder, elbow or wrist motion. He has intact sensation in all fingers. He has good capillary refill of all fingers. Skin is intact in both hands. Radial pulses are palpable. Examination of the left leg reveals no pain with hip, knee or ankle motion. Skin is intact. Dorsalis pedis pulse is palpable. Sensation is intact. Examination of the right leg reveals pain with any hip motion. He has minimal tenderness around his knee, tibia and ankle. Skin is intact. Dorsalis pedis pulses palpable. Sensation is intact. X-RAYS X-rays of the right hip were reviewed. X-rays reveal a displaced right hip intertrochanteric fracture. IMPRESSION 1. Displaced right hip intertrochanteric fracture. 2. Hypertension. 3. Early dementia. PLAN The treatment options were discussed with the patient. At this point I would recommend reduction and intramedullary fixation of the right femur. The risk of surgery includes bleeding, infection, injury to arteries, nerves or blood vessels, nonunion, malunion, avascular necrosis, painful hardware as well as medical complications including blood clot, stroke, heart attack and . All questions were answered. I will plan on surgery today. A mid-level provider in my office, nurse practitioner or PA, may see this patient on a follow-up basis and continue to implement the objective of this plan including: Starting or adjusting medications, injections of muscle, tendon, bursa or joints, cast application, orthotic or brace application, physical therapy, further radiographic studies including x-ray, MRI, CT, ultrasounds or bone scan, vascular studies, neurologic studies, or other specialist consultations, and proceeding with surgical management as appropriate. MD KYLEE Rios/UMBERTO /6:53 AM /7:12 AM
--- NOTE | 2017-06-02 08:13 | PD.OP ---
cc: Filiberto Hall MD Operative Report Date of Surgery: Jun 02, 2017 Preoperative Diagnosis: Right hip intertrochanteric fracture Postoperative Diagnosis: Procedure: Right hip reduction and intramedullary nail fixation Surgeon: Filiberto Hall Stonecutter Apprentice Hand(s): MICHAEL Nesbitt PA-C The surgical procedure was assisted by my physician chemistry research assistant. My P.A. presence was necessary throughout this case for the manipulation and positioning of the surgical extremity. My P.A. was assisting me throughout the duration of this procedure. The skill set of a physician chemistry research assistant was medically necessary to complete this procedure. During the surgical case the surgical device sales representative was working at the back table and the physician chemistry research assistant was directly assisting me. Operation and Findings: Implants used: [12]mm 130 Synthes TFNA short troch nail Plan of activity: Weight-bear as tolerated Patient was seen and evaluated preoperatively. The patient has significant hip pain from intertrochanteric hip fracture. The risk and benefits of surgery were discussed in depth with the patient to include bleeding infection nonunion malunion and need for hip replacement painful hardware as well as medical competitions including but not stroke heart attack and . Informed consent was obtained. Operative site was marked. Patient was brought to the operating room and placed on fracture table. IV sedation was administered by anesthesiologist. Timeout procedure was performed. Hip and leg were prepped with alcohol followed by DuraPrep and draped in the usual sterile fashion. IV antibiotics were given prior to incision. Procedure began with reduction of fracture. Traction was applied. The leg was manipulated to achieve reduction. Excellent reduction was achieved. Fluoroscopy was used to confirm reduction. A three inch incision was made proximal to the trochanter. Subcutaneous tissue was dissected bluntly. Guidepin was placed at the tip of the trochanter and advanced into the femoral canal. Fluoroscopy confirmed appropriate guidepin placement. A opening reamer was placed over the guidepin. The Synthes TFNA nail was attached to the insertion handle. Nail was now placed through the tip of the trochanter into the femoral canal. Fluoroscopy confirmed appropriate nail placement. A second incision was made over the lateral thigh. Cannulas were placed through the insertion handle down to the femur. Guidepin was now placed through the femoral nail into the center of the femoral head. Fluoroscopy confirmed appropriate guidepin placement. Screw length was measured. Cannulated drill was placed over the guidepin. Appropriate length lag screw was now placed. Traction was released and compression was applied. The set screw was now tightened in dynamic mode. Using the insertion handle as a guide a distal interlocking screw was drilled and placed. Final fluoroscopy revealed well aligned fracture with well-placed hardware. Incision was closed with 3-0 Vicryl and rigo. Sterile dressings were applied. Patient was awakened and transferred to recovery room. Filiberto Hall MD Jun 02, 2017 08:12
[2017-06-02] MEDS ORDERED: DO NOT ADM ANY ANTICOAGULANT DRUGS PRN (08:34)
[2017-06-02] MEDS ORDERED: diphenhydrAMINE HCL 25 MG CAP PO PRN (08:45)
[2017-06-02] MEDS ORDERED: MORPHINE SULFATE 2 MG/ML INJ IV PUSH PRN (08:45)
[2017-06-02] MEDS: QUEtiapine FUMARATE 25 MG TAB PO SCH (09:00)
[2017-06-02] MEDS: ESCITALOPRAM OXALATE 20 MG TAB PO SCH (09:00)
[2017-06-02] MEDS: MEMANTINE HCL 10 MG TAB PO SCH ×2 (09:00→22:09)
[2017-06-02] MEDS: FINASTERIDE 5 MG TAB PO SCH (09:00)
[2017-06-02] MEDS: SODIUM CHLORIDE 0.9% FLUSH 10 ML FLUSH IV FLUSH SCH ×2 (09:00→22:09)
--- NOTE | 2017-06-02 11:18 | RADRPT ---
EXAM DATE/TIME: 06/02/2017 08:07 [place] COMPARISON: No previous studies available for comparison. INDICATIONS : Right hip fracture- ORIF right hip trochnail. MEDICAL HISTORY : None. SURGICAL HISTORY : None. ENCOUNTER: Initial ACUITY: 1 day PAIN SCORE: Non-responsive. LOCATION: Right Hip FINDINGS: Anatomic alignment following open reduction and internal fixation of the right hip fracture. CONCLUSION: Anatomic alignment. Varun Flores MD FACR on June 02, 2017 at 11:16 Board Certified Radiologist. This report was verified electronically.
--- NOTE | 2017-06-02 11:24 | HHI.PR ---
Subjective Remarks f/u for lightheadedness, hx of multiple falls, and right hip fracture Patient's stepson is at the bedside during the interview. Patient stated that his symptoms are more lightheadedness. He stated that when he jumps up quickly and gets lightheadedness. This has been a chronic problem. She stated that when he gets up slowly he does not have any of the symptoms. Per patient's stepson patient does not follow directions and he likes to move quickly and jump up quickly from a sitting position. Despite knowing that this has been increasing risks of his falls patient continues to do this. Per patient's stepson he is aware that he has dementia and stated that this is partly his personality being stubborn and has dementia. He feels that the patient is fully aware what he is doing the consequences. Patient agrees. Patient also eats a lot of salt in his diet because in the past his blood pressure has been low. Patient has dementia and per stepson he has been declining in terms of his dementia. Patient lives at home with his and daughter. Objective Vitals Vital Signs Date Time Temp Pulse Resp B/P (MAP) Pulse Ox O2 Delivery O2 Flow Rate FiO2 06/02/17 10:00 96.7 68 16 101/48 (65) 98 06/02/17 09:40 74 18 104/53 (70) 96 Nasal Cannula 2.5 06/02/17 09:30 98.8 75 17 100/54 (69) 96 Nasal Cannula 2.5 06/02/17 09:15 78 18 91/52 (65) 96 Nasal Cannula 2.5 06/02/17 09:00 80 17 96/50 (65) 96 Nasal Cannula 3 06/02/17 08:45 82 17 97/53 (68) 96 Nasal Cannula 3 06/02/17 08:33 98.8 85 17 108/55 (72) 94 Nasal Cannula 3 06/02/17 06:17 98.7 68 20 107/71 (83) 95 06/02/17 04:00 97.3 87 20 113/54 (73) 93 106/57 (73) 06/02/17 00:00 99.8 86 20 108/58 (75) 94 06/01/17 20:00 98.9 84 20 106/56 (73) 94 06/01/17 15:45 98.0 83 17 96/57 (70) 98 06/01/17 12:06 06/01/17 12:00 97.0 65 16 117/52 (73) 97 I/O 06/01/17 06/01/17 06/01/17 06/02/17 06/02/17 06/02/17 07:00 15:00 23:00 07:00 15:00 23:00 Intake Total 0 ml 300 ml 1200 ml Output Total 600 ml 300 ml 800 ml 350 ml Balance -600 ml 0 ml -800 ml 850 ml Intake Oral 0 ml 300 ml Other 1200 ml Output Urine Total 600 ml 300 ml 800 ml 300 ml Estimated Blood Loss 50 ml # Bowel Movements 0 0 Result Diagram: 06/02/178 06/02/17 0458 Objective Remarks GENERAL: in NAD NECK: Supple, trachea midline. No JVD or lymphadenopathy. CARDIOVASCULAR: Regular rate and rhythm without murmurs, gallops, or rubs. RESPIRATORY: Breath sounds equal bilaterally. No accessory muscle use. GASTROINTESTINAL: Abdomen soft, non-tender, nondistended. MUSCULOSKELETAL: No cyanosis, or edema. Medications and IVs Current Medications Morphine Sulfate (Morphine Inj) 2 mg ONCE ONCE IV PUSH ; Start 06/01/17 at 10:15 ; Stop 06/01/17 at 10:23; Status DC Ondansetron HCl (Zofran Inj) 4 mg ONCE ONCE IVP ; Start 06/01/17 at 10:15; Stop 06/01/17 at 10:23; Status DC Sodium Chloride (NS Flush) 2 ml UNSCH PRN IVF FLUSH AFTER USING IV ACCESS; Start 06/01/17 at 10:15; Stop 06/01/17 at 12:20; Status DC Sodium Chloride (NS Flush) 2 ml UNSCH PRN IV FLUSH FLUSH AFTER USING IV ACCESS ; Start 06/01/17 at 11:45 Sodium Chloride (NS Flush) 2 ml BID IV FLUSH Last administered on 06/01/17at 23: 32; Start 06/01/17 at 21:00 Naloxone HCl (Narcan Inj) 0.4 mg UNSCH PRN IV PUSH SEE LABEL COMMENTS; Start at 11:45 Atorvastatin Calcium (Lipitor) 10 mg HS PO Last administered on 06/01/17at 23:31 ; Start 06/01/17 at 21:00 Donepezil HCl (Aricept) 10 mg HS PO Last administered on 06/01/17at 23:31; Start 06/01/17 at 21:00 Escitalopram Oxalate (Lexapro) 20 mg DAILY PO ; Start 06/02/17 at 09:00 Memantine (Namenda) 10 mg BID PO Last administered on 06/01/17at 23:31; Start 06/01/17 at 21:00 Tramadol HCl (Ultram) 50 mg Q6H PRN PO PAIN SCALE 1 TO 10 Last administered on 06/01/17at 23:31; Start 06/01/17 at 15:15 Finasteride (Proscar) 5 mg DAILY PO ; Start 06/02/17 at 09:00 Quetiapine Fumarate (SEROquel) 75 mg DAILY PO ; Start 06/02/17 at 09:00 Dextrose/Sodium Chloride 1,000 ml @ 42 mls/hr [id number] IV Last administered on 06/01/17at 23:33; Start 06/01/17 at 23:55 Dextrose (D50w (Vial) Inj) 50 ml UNSCH PRN IV PUSH HYPOGLYCEMIA-SEE COMMENTS; Start 06/01/17 at 15:15 Glucagon (Glucagon Inj) 1 mg UNSCH PRN OTHER HYPOGLYCEMIA-SEE COMMENTS; Start 06/01/17 at 15:15 Acetaminophen (Tylenol) 650 mg Q4H PRN PO pain ; Start 06/01/17 at 15:15; Status UNV Lactated Ringer's 1,000 ml @ 30 mls/hr Q24H PRN IV SEE LABEL COMMENTS Last administered on 06/02/17at 06:02; Start 06/01/17 at 21:45; Stop 06/04/17 at 21:44 Sodium Chloride 500 ml @ 30 mls/hr [id number] PRN IV SEE LABEL COMMENTS; Start 06/01/17 at 21:45; Stop 06/04/17 at 21:44 Povidone Iodine (Betadine 5% Antisepsis Kit) 1 applic SUPERVISOR RIPRAP PLACING PRN EACH NARE SEE LABEL COMMENTS; Start 06/01/17 at 21:45; Stop 06/04/17 at 21:44 Chlorhexidine Gluconate (Chlorhexidine 2% Cloth) 3 pack SUPERVISOR RIPRAP PLACING PRN TOPICAL SEE LABEL COMMENTS; Start 06/01/17 at 21:45; Stop 06/04/17 at 21:44 Acetaminophen 100 ml @ As Directed STK-MED ONCE IV ; Start 06/02/17 at 06:48; Stop 06/02/17 at 06:49; Status DC Vancomycin HCl (Vancomycin Inj) 1,000 mg STK-MED ONCE .ROUTE Last administered on 06/02/17at 07:45; Start 06/02/17 at 07:12; Stop 06/02/17 at 07:13; Status DC Cefazolin Sodium/ Dextrose 50 ml @ As Directed STK-MED ONCE .ROUTE Last administered on 06/02/17at 07:40; Start 06/02/17 at 07:12; Stop 06/02/17 at 07:13; Status DC Bupivacaine HCl/ Epinephrine Bitart (Marcaine-Epi Pf 0.25% Inj) 30 ml STK-MED ONCE .ROUTE Last administered on 06/02/17at 08:18; Start 06/02/17 at 07:13; Stop 06/02/17 at 07:14; Status DC Sodium Chloride 250 ml @ As Directed STK-MED ONCE .ROUTE ; Start 06/02/17 at 07: 13; Stop 06/02/17 at 07:14; Status DC Famotidine (Pepcid Inj) 20 mg STK-MED ONCE .ROUTE ; Start 06/02/17 at 07:18; Stop 06/02/17 at 07:19; Status DC Enoxaparin Sodium (Lovenox Inj) 30 mg Q24H SQ ; Start 06/03/17 at 08:00 Cefazolin Sodium 1000 mg/Sodium Chloride 100 ml @ 200 mls/hr Q8H IV ; Start 06/02/17 at 16:00; Stop 06/03/17 at 08:29 Diphenhydramine HCl (Benadryl) 25 mg Q6H PRN PO ITCHING; Start 06/02/17 at 08:45 Acetaminophen/ Hydrocodone Bitart ([place] 7.5-325 Mg) 1 tab Q3H PRN PO pain 3< 10; Start 06/02/17 at 08:15; Status UNV Morphine Sulfate (Morphine Inj) 3 mg Q3H PRN IV PUSH break thru pain; Start 06/02/17 at 08:45 Cholecalciferol (Vitamin D3) 5,000 units DAILY PO ; Start 06/02/17 at 09:00; Status UNV Ergocalciferol (Drisdol) 50,000 units ONCE ONCE PO ; Start 06/02/17 at 08:15; Stop 06/02/17 at 08:16; Status UNV Miscellaneous Information ALL NURSING DEPARTME... UNSCH PRN .XX SEE LABEL COMMENTS; Start 06/02/17 at 08:34; Stop 06/03/17 at 08:33 A/P Assessment and Plan This is a 87-year-old male with a mechanical fall due to his chronic lightheadedness Right hip fracture -Status post Right hip reduction and intramedullary nail fixation on 06/01 -PT consulted. -Most likely will need to be discharged to rehabilitation. Management per orthopedic surgeon. Chronic intermittent lightheadedness -This has been chronic in nature. Per patient stepson he does have orthostatic hypotension. Patient's aware of the precautions he needs to take but does not take them which may be also secondary to his dementia. -He is on a high sodium diet. So we'll continue with high sodium diet. -Orthostatic here negative. -Patient also knows that if he gets up slowly he is asymptomatic. Reinforced teaching to patient. History of left bundle branch block on EKG/hypertension/hyperlipidemia/BPH/ anxiety/depression/dementia -In terms of his dementia he seems to be deteriorating. Extensive education was done with patient's stepson who is fully aware of his clinical course and deterioration. -Continue home medication. -Patient does have a living will. DVT prophylaxis -On Lovenox Discharge Planning Once medically stable will be discharged to SNF Bina Pinto MD Jun 02, 2017 11:23
[2017-06-02] MEDS ORDERED: ePHEDrine/NS 25 MG/5 ML SYRINGE IV ONE (12:00)
[2017-06-02] MEDS ORDERED: ROCURONIUM INJ 50 MG/5 ML SYRINGE IV PUSH ONE (12:00)
[2017-06-02] MEDS ORDERED: LIDOCAINE HCL 1% PF 5 ML SYRINGE OTHER ONE (12:00)
[2017-06-02] MEDS ORDERED: ACETAMINOPHEN/HYDROcodone 325 MG/7.5 MG TAB PO PRN (12:00)
[2017-06-02] MEDS ORDERED: ONDANSETRON HCL 4 MG/2 ML VIAL IV ONE (12:00)
[2017-06-02] MEDS ORDERED: PROPOFOL 200 MG/20 ML AMP IV ONE (12:00)
[2017-06-02] MEDS ORDERED: DEXAMETHASONE SOD PHOS 4 MG/ML VIAL IV ONE (12:00)
[2017-06-02] MEDS ORDERED: PHENYLEPH/NS 1000 MCG/10 ML SYR IV ONE (12:00)
[2017-06-02] MEDS ORDERED: ERGOCALCIFEROL (VIT D2) 50,000 UNIT CAP PO ONE (12:00)
[2017-06-02] MEDS ORDERED: LACTATED RINGER'S 1000 ML INJ 1,000 ML IV ONE (12:00)
--- NOTE | 2017-06-02 12:54 | EKG ---
Date Performed: 06/01/2017 Time Performed: 11:56:40 PTAGE: 87 years EKG: Sinus rhythm LEFT BUNDLE BRANCH BLOCK ABNORMAL ECG INTERPRETATION BASED ON A DEFAULT AGE OF 40 YEARS PREVIOUS TRACING : 01/19/2017 14.19 DOCTOR: Luis Joyce Interpretating Date/Time 06/02/2017 12:53:46
[2017-06-02] MEDS ORDERED: QUET1TAB8 PO (16:36)
[2017-06-02] MEDS: ATORVASTATIN 10 MG TAB PO SCH (22:09)
[2017-06-02] MEDS: DONEPEZIL HCL 5 MG TAB PO SCH (22:09)
[2017-06-02] MEDS: QUEtiapine FUMARATE 100 MG TAB PO SCH (22:09)
[2017-06-02] MEDS ORDERED: GLUCAGON 1 MG/ML VIAL OTHER PRN (23:30)
[2017-06-02] MEDS ORDERED: DEXTROSE 50% IN WATER 50 ML VIAL(D50) IV PUSH PRN (23:30)
[2017-06-02] MEDS ORDERED: SODIUM CHLOR 0.9% 1000 ML INJ 1,000 ML IV SCH (23:30)
[2017-06-03] VITALS (9 sets, daily range): BP systolic 62–118; BP diastolic 41–54; PULSE 84–97; RESP 17–18; TEMP 96.7–98.9; O2SAT 92–97
--- NOTE | 2017-06-03 06:50 | PD.ORT.PN ---
Subjective Subjective Remarks POD 1 s/p IMN right hip doing well. reports pain but ambulatory. has made it to bathroom with walker Objective Vitals Vital Signs Date Time Temp Pulse Resp B/P (MAP) Pulse Ox O2 Delivery O2 Flow Rate FiO2 06/03/17 03:30 98.9 91 18 105/54 (71) 92 06/03/17 00:00 118/53 (74) 06/02/17 23:45 97.6 92 18 90/49 (63) 92 81/53 (62) 77/46 (56) 06/02/17 20:55 96 Nasal Cannula 2.50 06/02/17 19:40 96.9 105 18 103/55 (71) 95 06/02/17 16:00 96.4 94 17 104/58 (73) 96 06/02/17 12:00 96.3 90 17 100/55 (70) 98 06/02/17 10:00 96.7 68 16 101/48 (65) 98 06/02/17 09:40 74 18 104/53 (70) 96 Nasal Cannula 2.5 06/02/17 09:30 98.8 75 17 100/54 (69) 96 Nasal Cannula 2.5 06/02/17 09:15 78 18 91/52 (65) 96 Nasal Cannula 2.5 06/02/17 09:00 80 17 96/50 (65) 96 Nasal Cannula 3 06/02/17 08:45 82 17 97/53 (68) 96 Nasal Cannula 3 06/02/17 08:33 98.8 85 17 108/55 (72) 94 Nasal Cannula 3 I/O 06/02/17 06/02/17 06/02/17 06/03/17 06/03/17 06/03/17 07:00 15:00 23:00 07:00 15:00 23:00 Intake Total 1200 ml 580 ml 641 ml Output Total 800 ml 750 ml 250 ml 350 ml Balance -800 ml 450 ml 330 ml 291 ml Intake Oral 480 ml 480 ml IV Total 100 ml 161 ml Other 1200 ml Output Urine Total 800 ml 700 ml 250 ml 350 ml Estimated Blood Loss 50 ml # Bowel Movements 0 0 0 Result Diagram: 06/02/17 0458 06/02/17 0458 Imaging Last 24 hours Impressions Hip and Pelvis X-Ray 06/01/17 1010 Signed Impressions: Service Date/Time: Thursday, June 01, 2017 10:29 - CONCLUSION: Intertrochanteric fracture on the right. K. Isac Parrish MD Chest X-Ray 06/01/17 1010 Signed Impressions: Service Date/Time: Thursday, June 01, 2017 10:24 - CONCLUSION: Cardiomegaly. No acute pulmonary disease. Claudio Boyce MD Objective Remarks RLE: dressings clean and dry. intact. NVI. Assessment & Plan Assessment and Plan 1) Right Intertroch Hip Fx s/p IMN - POD 1 -WBAT -daily dressing changes POD 2 -see how does with PT today. if does well, plan for home with C Fri/Sat -if struggles, will look at SNF options -DVT [prophylaxis -f/u with [facility] or PA in 2 weeks Eduardo Zabala PA/Rail Car Painter/Sandblaster PA Jun 03, 2017 06:50
--- NOTE | 2017-06-03 06:51 | HHI.FF ---
Face to Face Verification Diagnosis: (1) Intertrochanteric fracture of right femur Physical Therapy Gait training Hip: Hip fracture, Protocol: Right, Progress to weight bearing (e) Right LE Weight Bearing: WB as tolerated Nursing Dressing Changes: Daily dressing change, Xeroform, Coverderm/Primapore I have seen patient Angel Lopez on 06/03/17. My clinical findings support the need for the requested home health care services because: Ltd mobility - disease progression I certify that my clinical findings support that this patient is homebound because: Post-op weakness Eduardo Zabala/Lockstitch Binder GAYLE Jun 03, 2017 06:51
[2017-06-03] MEDS: SODIUM CHLORIDE 0.9% FLUSH 10 ML FLUSH IV FLUSH SCH ×2 (09:00→22:54)
[2017-06-03] MEDS: ENOXAPARIN SODIUM 30 MG/0.3 ML SYRINGE SQ SCH (09:12)
[2017-06-03] MEDS: CHOLECALCIFEROL (VIT D3) 5000 UNIT CAP PO SCH (09:13)
[2017-06-03] MEDS: ESCITALOPRAM OXALATE 20 MG TAB PO SCH (09:13)
[2017-06-03] MEDS: FINASTERIDE 5 MG TAB PO SCH (09:13)
[2017-06-03] MEDS: INSULIN ASPART SUPPLEMENTAL SCALE SQ SCH ×4 (09:13→22:56)
[2017-06-03] MEDS: QUEtiapine FUMARATE 25 MG TAB PO SCH (09:13)
[2017-06-03] MEDS: MEMANTINE HCL 10 MG TAB PO SCH ×2 (09:13→22:53)
[2017-06-03] MEDS ORDERED: SODIUM CHLOR 0.9% 1000 ML INJ 1,000 ML IV ONE (11:30)
[2017-06-03] MEDS: SODIUM CHLORIDE 1 GRAM TAB PO SCH ×2 (12:03→22:53)
--- NOTE | 2017-06-03 12:20 | HHI.PR ---
Subjective Remarks Follow-up for dizziness and hip fracture Patient denies any lightheadedness or dizziness. He has no complaints. Positive orthostatic hypotension. he has not been eating much at all. He usually eats a very high sodium diet due to his orthostatic hypotension. Denied any fevers or chills. He remains afebrile. Spoke to his step son over the phone in regards to medical updates and management. Discussed case with patient's nurse, Kelley. Objective Vitals Vital Signs Date Time Temp Pulse Resp B/P (MAP) Pulse Ox O2 Delivery O2 Flow Rate FiO2 06/03/17 08:15 100/46 (64) Automatic Cuff 06/03/17 08:00 97.7 97 17 62/41 (48) 94 06/03/17 03:30 98.9 91 18 105/54 (71) 92 06/03/17 00:00 118/53 (74) 06/02/17 23:45 97.6 92 18 90/49 (63) 92 81/53 (62) 77/46 (56) 06/02/17 20:55 96 Nasal Cannula 2.50 06/02/17 19:40 96.9 105 18 103/55 (71) 95 06/02/17 16:00 96.4 94 17 104/58 (73) 96 I/O 06/02/17 06/02/17 06/02/17 06/03/17 06/03/17 06/03/17 07:00 15:00 23:00 07:00 15:00 23:00 Intake Total 1200 ml 580 ml 641 ml Output Total 800 ml 750 ml 250 ml 350 ml Balance -800 ml 450 ml 330 ml 291 ml Intake Oral 480 ml 480 ml IV Total 100 ml 161 ml Other 1200 ml Output Urine Total 800 ml 700 ml 250 ml 350 ml Estimated Blood Loss 50 ml # Bowel Movements 0 0 0 Result Diagram: 06/02/1745706/02/17457 Objective Remarks GENERAL: in NAD NECK: Supple, trachea midline. No JVD or lymphadenopathy. CARDIOVASCULAR: Regular rate and rhythm without murmurs, gallops, or rubs. RESPIRATORY: Breath sounds equal bilaterally. No accessory muscle use. GASTROINTESTINAL: Abdomen soft, non-tender, nondistended. MUSCULOSKELETAL: No cyanosis, or edema. Medications and IVs Current Medications Morphine Sulfate (Morphine Inj) 2 mg ONCE ONCE IV PUSH ; Start 06/01/17 at 10:15 ; Stop 06/01/17 at 10:23; Status DC Ondansetron HCl (Zofran Inj) 4 mg ONCE ONCE IVP ; Start 06/01/17 at 10:15; Stop 06/01/17 at 10:23; Status DC Sodium Chloride (NS Flush) 2 ml UNSCH PRN IVF FLUSH AFTER USING IV ACCESS; Start 06/01/17 at 10:15; Stop 06/01/17 at 12:20; Status DC Sodium Chloride (NS Flush) 2 ml UNSCH PRN IV FLUSH FLUSH AFTER USING IV ACCESS ; Start 06/01/17 at 11:45 Sodium Chloride (NS Flush) 2 ml BID IV FLUSH Last administered on 06/01/17at 23: 32; Start 06/01/17 at 21:00 Naloxone HCl (Narcan Inj) 0.4 mg UNSCH PRN IV PUSH SEE LABEL COMMENTS; Start at 11:45 Atorvastatin Calcium (Lipitor) 10 mg HS PO Last administered on 06/02/17at 22:09 ; Start 06/01/17 at 21:00 Donepezil HCl (Aricept) 10 mg HS PO Last administered on 06/02/17at 22:09; Start 06/01/17 at 21:00 Escitalopram Oxalate (Lexapro) 20 mg DAILY PO Last administered on 06/03/17at 09: 13; Start 06/02/17 at 09:00 Memantine (Namenda) 10 mg BID PO Last administered on 06/03/17at 09:13; Start 06/01/17 at 21:00 Tramadol HCl (Ultram) 50 mg Q6H PRN PO PAIN SCALE 1 TO 5 Last administered on at 23:31; Start 06/01/17 at 15:15 Finasteride (Proscar) 5 mg DAILY PO Last administered on 06/03/17 09:13; Start 06/02/17 at 09:00 Quetiapine Fumarate (SEROquel) 75 mg DAILY PO Last administered on 06/03/17 09: 13; Start 06/02/17 at 09:00 Dextrose/Sodium Chloride 1,000 ml @ 42 mls/hr [id number] IV Last administered on 06/01/17at 23:33; Start 06/01/17 at 23:55; Stop 06/02/17 at 23:31; Status DC Dextrose (D50w (Vial) Inj) 50 ml UNSCH PRN IV PUSH HYPOGLYCEMIA-SEE COMMENTS; Start 06/01/17 at 15:15; Stop 06/03/17 at 11:48; Status DC Glucagon (Glucagon Inj) 1 mg UNSCH PRN OTHER HYPOGLYCEMIA-SEE COMMENTS; Start 06/01/17 at 15:15; Stop 06/03/17 at 11:48; Status DC Acetaminophen (Tylenol) 650 mg Q4H PRN PO pain ; Start 06/01/17 at 15:15; Status UNV Lactated Ringer's 1,000 ml @ 30 mls/hr Q24H PRN IV SEE LABEL COMMENTS Last administered on 06/02/17at 06:02; Start 06/01/17 at 21:45; Stop 06/04/17 at 21:44 Sodium Chloride 500 ml @ 30 mls/hr [id number] PRN IV SEE LABEL COMMENTS; Start 06/01/17 at 21:45; Stop 06/04/17 at 21:44 Povidone Iodine (Betadine 5% Antisepsis Kit) 1 applic SUPERVISOR AREA PRN EACH NARE SEE LABEL COMMENTS; Start 06/01/17 at 21:45; Stop 06/04/17 at 21:44 Chlorhexidine Gluconate (Chlorhexidine 2% Cloth) 3 pack SUPERVISOR AREA PRN TOPICAL SEE LABEL COMMENTS; Start 06/01/17 at 21:45; Stop 06/04/17 at 21:44 Acetaminophen 100 ml @ As Directed STK-MED ONCE IV ; Start 06/02/17 at 06:48; Stop 06/02/17 at 06:49; Status DC Vancomycin HCl (Vancomycin Inj) 1,000 mg STK-MED ONCE .ROUTE Last administered on 06/02/17at 07:45; Start 06/02/17 at 07:12; Stop 06/02/17 at 07:13; Status DC Cefazolin Sodium/ Dextrose 50 ml @ As Directed STK-MED ONCE .ROUTE Last administered on 06/02/17at 07:40; Start 06/02/17 at 07:12; Stop 06/02/17 at 07:13; Status DC Bupivacaine HCl/ Epinephrine Bitart (Marcaine-Epi Pf 0.25% Inj) 30 ml STK-MED ONCE .ROUTE Last administered on 06/02/17at 08:18; Start 06/02/17 at 07:13; Stop 06/02/17 at 07:14; Status DC Sodium Chloride 250 ml @ As Directed STK-MED ONCE .ROUTE ; Start 06/02/17 at 07: 13; Stop 06/02/17 at 07:14; Status DC Famotidine (Pepcid Inj) 20 mg STK-MED ONCE .ROUTE ; Start 06/02/17 at 07:18; Stop 06/02/17 at 07:19; Status DC Enoxaparin Sodium (Lovenox Inj) 30 mg Q24H SQ Last administered on 06/03/17at 09: 12; Start 06/03/17 at 08:00 Cefazolin Sodium 1000 mg/Sodium Chloride 100 ml @ 200 mls/hr Q8H IV Last administered on 06/03/17at 08:00; Start 06/02/17 at 16:00; Stop 06/03/17 at 08:29; Status DC Diphenhydramine HCl (Benadryl) 25 mg Q6H PRN PO ITCHING; Start 06/02/17 at 08:45 Acetaminophen/ Hydrocodone Bitart ([place] 7.5-325 Mg) 1 tab Q3H PRN PO pain 6- 10; Start 06/02/17 at 12:00 Morphine Sulfate (Morphine Inj) 3 mg Q3H PRN IV PUSH break thru pain; Start 06/02/17 at 08:45 Cholecalciferol (Vitamin D3) 5,000 units DAILY PO Last administered on at 09:13; Start 06/03/17 at 09:00 Ergocalciferol (Drisdol) 50,000 units ONCE ONCE PO Last administered on at 16:50; Start 06/02/17 at 12:00; Stop 06/02/17 at 12:01; Status DC Miscellaneous Information ALL NURSING DEPARTME... UNSCH PRN .XX SEE LABEL COMMENTS; Start 06/02/17 at 08:34; Stop 06/03/17 at 08:33; Status DC Fentanyl Citrate (fentaNYL INJ) 200 mcg STK-MED ONCE .ROUTE ; Start 06/02/17 at 18:09; Stop 06/02/17 at 18:10; Status DC Quetiapine Fumarate (SEROquel) 100 mg HS PO Last administered on 06/02/17at 22:09 ; Start 06/02/17 at 21:00 Dextrose (D50w (Vial) Inj) 50 ml UNSCH PRN IV PUSH HYPOGLYCEMIA-SEE COMMENTS; Start 06/02/17 at 23:30 Glucagon (Glucagon Inj) 1 mg UNSCH PRN OTHER HYPOGLYCEMIA-SEE COMMENTS; Start 06/02/17 at 23:30 Insulin Aspart (NovoLOG SUPPLEMENTAL SCALE) 1 ACHS SLIDING SCALE SQ Last administered on 06/03/17at 09:13; Start 06/03/17 at 08:00 Sodium Chloride 1,000 ml @ 42 mls/hr [id number] IV Last administered on 06/03/17at 00:03; Start 06/02/17 at 23:30; Stop 06/03/17 at 23:18 Sodium Chloride 1,000 ml @ 999 mls/hr BOLUS ONCE IV ; Start 06/03/17 at 11:30; Stop 06/03/17 at 12:30 Sodium Chloride (Sodium Chloride) 1 gm BID PO ; Start 06/03/17 at 12:00 A/P Assessment and Plan This is a 87-year-old male with a mechanical fall due to his chronic lightheadedness Right hip fracture -Status post Right hip reduction and intramedullary nail fixation on 06/01 -PT consulted. -Most likely will need to be discharged to rehabilitation. Management per orthopedic surgeon. Chronic intermittent lightheadedness due to orthostatic hypotension -This has been chronic in nature. Per patient stepson he does have orthostatic hypotension. Patient's aware of the precautions he needs to take but does not take them which may be also secondary to his dementia. -Patient is post be in a high sodium diet but he has decreased oral intake. Encourage oral intake. Will also add sodium tablets. -We'll also give him a bolus of fluid since his blood pressures running low. No signs of infection. Continue to monitor clinically. Orthostatic hypotension -See treatment as above. History of left bundle branch block on EKG/hypertension/hyperlipidemia/BPH/ anxiety/depression/dementia -In terms of his dementia he seems to be deteriorating. Extensive education was done with patient's stepson who is fully aware of his clinical course and deterioration. -Continue home medication. -Patient does have a living will. DVT prophylaxis -On Lovenox Discharge Planning If orthostatic hypotension and hypotension improves patient is medically clear for discharge to SNF. Bina Pinto MD Jun 03, 2017 12:20
[2017-06-03 13:10] LABS: AUTOMATED NEUTROPHIL # 6.9 TH/MM3 (1.8-7.7); BASOPHIL % 0.1 % (0.0-2.0); EOSINOPHIL % 0.1 % (0.0-4.0); HEMATOCRIT 21.6 % (39.0-51.0); HEMOGLOBIN 7.6 GM/DL (13.0-17.0); LYMPH % 7.8 % (9.0-44.0); LYMPHOCYTE # 0.7 TH/MM3 (1.0-4.8); MEAN CELL VOLUME 92.2 FL (80.0-100.0); MEAN CORPUSCULAR HEMOGLOBIN 32.5 PG (27.0-34.0); MEAN CORPUSCULAR HGB CONC 35.3 % (32.0-36.0); MONO % 11.3 % (0.0-8.0); NEUT % 80.7 % (16.0-70.0); PLATELET COUNT 146 TH/MM3 (150-450); RED BLOOD COUNT 2.34 MIL/MM3 (4.50-5.90); RED CELL DISTRIBUTION WIDTH 13.7 % (11.6-17.2); WHITE BLOOD COUNT 8.5 TH/MM3 (4.0-11.0)
[2017-06-03 13:33] LABS: CALCIUM 7.5 MG/DL (8.5-10.1); CREATININE 2.06 MG/DL (0.60-1.30)
[2017-06-03] MEDS ORDERED: SODIUM CHLOR 0.9% 250 ML INJ 250 ML IV ONE (21:15)
[2017-06-03] MEDS: DONEPEZIL HCL 5 MG TAB PO SCH (22:53)
[2017-06-03] MEDS: ATORVASTATIN 10 MG TAB PO SCH (22:53)
[2017-06-03] MEDS: QUEtiapine FUMARATE 100 MG TAB PO SCH (22:54)
[2017-06-04] VITALS (8 sets, daily range): BP systolic 95–135; BP diastolic 49–88; PULSE 76–88; RESP 17–18; TEMP 97.3–98.9; O2SAT 95–96
[2017-06-04] MEDS: SODIUM CHLOR 0.9% 1000 ML INJ 1,000 ML IV SCH ×2 (00:12→11:48)
--- NOTE | 2017-06-04 06:37 | PD.ORT.PN ---
Subjective Subjective Remarks POD 2 s/p IMN right hip doing well. reports pain but ambulatory. has made it to bathroom with walker. reports that he is improving and that he feels comfortable enough to potentially go home with [facility] Objective Vitals Vital Signs Date Time Temp Pulse Resp B/P (MAP) Pulse Ox O2 Delivery O2 Flow Rate FiO2 06/04/17 04:15 97.8 78 18 122/51 95 06/04/17 01:09 97.8 86 17 125/61 96 06/04/17 00:53 97.3 79 18 102/53 95 06/03/17 20:13 97 Nasal Cannula 2.00 06/03/17 20:00 96.7 88 18 105/46 (65) 95 06/03/17 12:00 97.3 84 17 104/44 (64) 94 06/03/17 11:10 98/53 (68) 76/47 (57) 74/48 (57) Manual Cuff/Auscultation 06/03/17 09:05 93 06/03/17 08:15 100/46 (64) Automatic Cuff 06/03/17 08:00 97.7 97 17 62/41 (48) 94 I/O 06/03/17 06/03/17 06/03/17 06/04/17 06/04/17 06/04/17 07:00 15:00 23:00 07:00 15:00 23:00 Intake Total 641 ml 480 ml 120 ml 540 ml Output Total 350 ml 75 ml Balance 291 ml 405 ml 120 ml 540 ml Intake Oral 480 ml 480 ml 120 ml 120 ml IV Total 161 ml Packed Cells 400 ml Blood Product IV Normal Saline Flush 20 ml Output Urine Total 350 ml 75 ml Bladder Scan Volume Amount 153 ml # Voids 3 4 # Bowel Movements 0 0 0 0 Result Diagram: 06/03/17 1801 06/03/17 1236 Imaging Last 24 hours Impressions Hip and Pelvis X-Ray 06/01/17 1010 Signed Impressions: Service Date/Time: Thursday, June 01, 2017 10:29 - CONCLUSION: Intertrochanteric fracture on the right. Peggy Parrish MD Chest X-Ray 06/01/17 1010 Signed Impressions: Service Date/Time: Thursday, June 01, 2017 10:24 - CONCLUSION: Cardiomegaly. No acute pulmonary disease. Claudio Boyce MD Objective Remarks RLE: dressings clean and dry. intact. NVI. Assessment & Plan Assessment and Plan 1) Right Intertroch Hip Fx s/p IMN - POD 2a= -WBAT -daily dressing changes POD 2 -plan for home with [facility] -ortho cleared for DC -if struggles, will look at SNF options -DVT [prophylaxis -f/u with [facility] or PA in 2 weeks Eduardo Zabala PA/Wood Boatbuilder Apprentice PA Jun 04, 2017 06:37
[2017-06-04 07:40] LABS: HEMOGLOBIN 8.2 GM/DL (13.0-17.0); MEAN CELL VOLUME 91.6 FL (80.0-100.0); MEAN CORPUSCULAR HEMOGLOBIN 32.8 PG (27.0-34.0); MEAN CORPUSCULAR HGB CONC 35.9 % (32.0-36.0); MEAN PLATELET VOLUME 8.8 FL (7.0-11.0); PLATELET COUNT 128 TH/MM3 (150-450); RED BLOOD COUNT 2.51 MIL/MM3 (4.50-5.90); RED CELL DISTRIBUTION WIDTH 13.4 % (11.6-17.2); WHITE BLOOD COUNT 6.1 TH/MM3 (4.0-11.0)
[2017-06-04] MEDS: INSULIN ASPART SUPPLEMENTAL SCALE SQ SCH ×2 (08:00→13:13)
[2017-06-04 08:15] LABS: BICARBONATE 26.4 MEQ/L (21.0-32.0); CALCIUM 7.8 MG/DL (8.5-10.1); CREATININE 1.26 MG/DL (0.60-1.30)
[2017-06-04] MEDS: MEMANTINE HCL 10 MG TAB PO SCH (08:51)
[2017-06-04] MEDS: ENOXAPARIN SODIUM 30 MG/0.3 ML SYRINGE SQ SCH (08:51)
[2017-06-04] MEDS: QUEtiapine FUMARATE 25 MG TAB PO SCH (08:51)
[2017-06-04] MEDS: CHOLECALCIFEROL (VIT D3) 5000 UNIT CAP PO SCH (08:51)
[2017-06-04] MEDS: SODIUM CHLORIDE 0.9% FLUSH 10 ML FLUSH IV FLUSH SCH (08:52)
[2017-06-04] MEDS: FINASTERIDE 5 MG TAB PO SCH (08:52)
[2017-06-04] MEDS: ESCITALOPRAM OXALATE 20 MG TAB PO SCH (08:52)
[2017-06-04] MEDS: SODIUM CHLORIDE 1 GRAM TAB PO SCH (08:52)
[2017-06-04] MEDS ORDERED: TRAM50TA PO (11:58)
[2017-06-04] MEDS ORDERED: GLIM1TAB PO (11:58)
[2017-06-04] MEDS ORDERED: SODI1TAB PO (11:59)
--- NOTE | 2017-06-04 12:00 | HHI.DS ---
Discharge Summary Admission Date Jun 01, 2017 at 11:39 Discharge Date: Jun 04, 2017 Admitting Diagnosis RIGHT INTERTROCHANTERIC FX (1) Intertrochanteric fracture of right femur ICD Code: S72.141A - Displaced intertrochanteric fracture of right femur, initial encounter for closed fracture Diagnosis: Principal (2) Orthostatic hypertension ICD Code: I10 - Essential (primary) hypertension Diagnosis: Principal (3) Hypotension ICD Code: I95.9 - Hypotension, unspecified Diagnosis: Principal (4) Acute renal failure ICD Code: N17.9 - Acute kidney failure, unspecified Diagnosis: Principal (5) Dehydration ICD Code: E86.0 - Dehydration Diagnosis: Principal (6) Anemia ICD Code: D64.9 - Anemia, unspecified Diagnosis: Principal (7) Dementia ICD Code: F03.90 - Unspecified dementia without behavioral disturbance Diagnosis: Secondary Procedures see hospital course Brief History - From Admission hx from patient, ER MD communication and review of med records i have dementia but i am usually ok but now has been falling - at least 4-5x now - in past 3 months this time i could not get up, usually i could pain at right hip gets dizziness before falls dizziness is usually when he sits up from a sitting position. no ear pain/ ringing/ no discharge no fever no spinning of rooms lives with elderly , stepson usually checks in on them little bit of redness in urine this last time- he thinks CBC/BMP: 06/04/17 0700 06/04/17 0700 Significant Findings Laboratory Tests Test 06/02/17 04:58 06/03/17 12:36 06/03/17 18:01 06/04/17 07:00 White Blood Count 11.3 TH/MM3 (4.0-11.0) Red Blood Count 3.23 MIL/MM3 (4.50-5.90) 2.34 MIL/MM3 (4.50-5.90) 2.51 MIL/MM3 (4.50-5.90) Hemoglobin 10.2 GM/DL (13.0-17.0) 7.6 GM/DL (13.0-17.0) 7.3 GM/DL (13.0-17.0) 8.2 GM/DL (13.0-17.0) Hematocrit 29.3 % (39.0-51.0) 21.6 % (39.0-51.0) 23.0 % (39.0-51.0) Neutrophils (%) (Auto) 76.9 % (16.0-70.0) 80.7 % (16.0-70.0) Monocytes (%) (Auto) 12.7 % (0.0-8.0) 11.3 % (0.0-8.0) Neutrophils # (Auto) 8.7 TH/MM3 (1.8-7.7) Monocytes # (Auto) 1.4 TH/MM3 (0-0.9) 1.0 TH/MM3 (0-0.9) Blood Urea Nitrogen 31 MG/DL (7-18) 50 MG/DL (7-18) 35 MG/DL (7-18) Creatinine 1.65 MG/DL (0.60-1.30) 2.06 MG/DL (0.60-1.30) Random Glucose 173 MG/DL (74-106) 229 MG/DL (74-106) 149 MG/DL (74-106) Calcium Level 8.1 MG/DL (8.5-10.1) 7.5 MG/DL (8.5-10.1) 7.8 MG/DL (8.5-10.1) Potassium Level 5.2 MEQ/L (3.5-5.1) Estimat Glomerular Filtration Rate 40 ML/MIN (>89) 31 ML/MIN (>89) 54 ML/MIN (>89) 25-Hydroxy Vitamin D Total 20.7 ng/ML (30-100) Platelet Count 146 TH/MM3 (150-450) 128 TH/MM3 (150-450) Lymphocytes (%) (Auto) 7.8 % (9.0-44.0) Lymphocytes # (Auto) 0.7 TH/MM3 (1.0-4.8) Chloride Level 108 MEQ/L (98-107) Imaging Last Impressions Hip X-Ray 06/02/17 0000 Signed Impressions: Service Date/Time: Friday, June 02, 2017 08:07 - CONCLUSION: Anatomic alignment. Varun Flores MD FACR Hip and Pelvis X-Ray 06/01/17 1010 Signed Impressions: Service Date/Time: Thursday, June 01, 2017 10:29 - CONCLUSION: Intertrochanteric fracture on the right. Peggy Parrish MD Chest X-Ray 06/01/17 1010 Signed Impressions: Service Date/Time: Thursday, June 01, 2017 10:24 - CONCLUSION: Cardiomegaly. No acute pulmonary disease. Claudio Boyce MD PE at Discharge GENERAL: in NAD NECK: Supple, trachea midline. No JVD or lymphadenopathy. CARDIOVASCULAR: Regular rate and rhythm without murmurs, gallops, or rubs. RESPIRATORY: Breath sounds equal bilaterally. No accessory muscle use. GASTROINTESTINAL: Abdomen soft, non-tender, nondistended. MUSCULOSKELETAL: No cyanosis, or edema. Pt update on day of discharge f/u for hypotension, orthostatic hypotension, anemia, ARF, dementia patient has no complaints. he stated he is doing well and is eating more. no acute events overnight d/w nurse Evans no concerns patient doing well. updated step son over the phone Hospital Course This is a 87-year-old male with a mechanical fall due to his chronic lightheadedness Right hip fracture -Status post Right hip reduction and intramedullary nail fixation on 06/01 -per PT discharge to SNF. Chronic intermittent lightheadedness due to orthostatic hypotension -This has been chronic in nature. Per patient stepson he does have orthostatic hypotension. Patient's aware of the precautions he needs to take but does not take them which may be also secondary to his dementia. -Patient is on high sodium diet but he has decreased oral intake. Encourage oral intake. sodium tablets added and improved BP. Orthostatic hypotension -See treatment as above. Hypotension -patient has high sodium intake due to hypotension but has poor PO intake while hospitalized. added sodium tablet and gave bolus BP improved drastically. History of left bundle branch block on EKG/hypertension/hyperlipidemia/BPH/ anxiety/depression/dementia -In terms of his dementia he seems to be deteriorating. Extensive education was done with patient's stepson who is fully aware of his clinical course and deterioration. -Continue home medication. -Patient does have a living will. Anemia -due to Blood lost during surgery. no active bleeding during hospitalization. Due to drastic decrease in hemoglobin and symptomatic transfused with 1 unit of PRBC. Pt Condition on Discharge: Stable Discharge Disposition: Discharge to SNF Discharge Time: > 30 minutes Discharge Instructions DIET: Follow Instructions for: As Tolerated, No Restrictions Activities you can perform: Regular-No Restrictions Follow up Referrals: Orthopedics - 2 Weeks [facility] with Filiberto Serna MD SNF/INTERMEDIATE/ - Daily New Medications: Calcium Carbonate-Vitamin D (Calcium 600+D 200) 600-200 Mg-Unit Tab 1 TAB PO BID for Nutritional Supplement, #90 TAB 0 Refills Ergocalciferol (Ergocalciferol) 50,000 Unit Cap 43538 UNITS PO Q7D for Nutritional Supplement, #8 CAP Glimepiride (Glimepiride) 1 Mg Tab 1 MG PO DAILY for Blood Sugar Management, #30 TAB 0 Refills Take with breakfast or first main meal Rivaroxaban (Xarelto) 10 Mg Tab 10 MG PO DAILY for Blood Clot Prevention, #14 TAB 0 Refills Walker/Adult/Folding (Walker/Adult/Folding) 1 Mis Mis EA .ROUTE DIRECTED, #1 0 Refills Sodium Chloride (Sodium Chloride) 1 Gram Tab 1 GM PO BID for orthostatic hypotension, #60 TAB 0 Refills Continued Medications: Aspirin (Aspirin Low Dose) 81 Mg Chew 81 MG CHEW DAILY, TAB 0 Refills Atorvastatin (Atorvastatin) 10 Mg Tab 10 MG PO HS for Cholesterol Management, #30 TAB 0 Refills Donepezil (Donepezil) 10 Mg Tab 10 MG PO HS for Dementia, #30 TAB 0 Refills Dutasteride (Dutasteride) 0.5 Mg Cap 0.5 MG PO DAILY for Manage Prostate Problems, #30 CAP 0 Refills Escitalopram (Escitalopram) 20 Mg Tab 20 MG PO DAILY, #30 TAB 0 Refills Memantine (Memantine) 10 Mg Tab 10 MG PO BID for Alzheimer's Dementia, TAB 0 Refills Quetiapine (Quetiapine) 50 Mg Tab 75 MG PO DAILY, #30 TAB 0 Refills Quetiapine (Quetiapine) 100 Mg Tab 100 MG PO HS for Agitation, #30 TAB 0 Refills Tramadol (Tramadol) 50 Mg Tab 50 MG PO Q6H PRN for PAIN, #15 TAB 0 Refills (This prescription has been renewed ) Discontinued Medications: Glimepiride (Glimepiride) 2 Mg Tab 2 MG PO DAILY for Blood Sugar Management, #30 TAB 0 Refills Take with breakfast or first main meal Lisinopril (Lisinopril) 20 Mg Tab 20 MG PO DAILY, #30 TAB 0 Refills Bina Pinto MD Jun 04, 2017 12:00
== END 2017-06-04 16:41 | DRG 481 ==
LOC: NEPE 09:54 → NEDA 11:39 → N06B 12:15
PROVIDERS: ADMIT Family Medicine; ATTEND Family Medicine
PROC: 0T9B70Z Drainage of Bladder with Drainage Device, Via Natural or Artificial Opening (ICD-10-PCS; 2017-06-01)
PROC: 0QS636Z Reposition Right Upper Femur with Intramedullary Internal Fixation Device, Percutaneous Approach (ICD-10-PCS; principal; 2017-06-02 07:30)
PROC: 30233N1 Transfusion of Nonautologous Red Blood Cells into Peripheral Vein, Percutaneous Approach (ICD-10-PCS; 2017-06-03)
DX: S72.141A Displaced intertrochanteric fracture of right femur, initial encounter for closed fracture (principal); N17.9 Acute kidney failure, unspecified; F03.90 Unspecified dementia, unspecified severity, without behavioral disturbance, psychotic disturbance, mood disturbance, and anxiety; E11.9 Type 2 diabetes mellitus without complications; I10 Essential (primary) hypertension; D64.89 Other specified anemias; E86.0 Dehydration; E78.5 Hyperlipidemia, unspecified; K57.90 Diverticulosis of intestine, part unspecified, without perforation or abscess without bleeding; Z87.891 Personal history of nicotine dependence; N40.0 Benign prostatic hyperplasia without lower urinary tract symptoms; F32.9 Major depressive disorder, single episode, unspecified; F41.9 Anxiety disorder, unspecified; I44.7 Left bundle-branch block, unspecified; I95.1 Orthostatic hypotension; W01.0XXA Fall on same level from slipping, tripping and stumbling without subsequent striking against object, initial encounter; Y92.009 Unspecified place in unspecified non-institutional (private) residence as the place of occurrence of the external cause; R29.6 Repeated falls
CPT/HCPCS: 36430; 51702; 71045; 73502; 76000; 80048; 80053; 81001; 82306; 82948; 85018; 85025; 85027; 85610; 85730; 86850; 86900; 86901; 86920; 93005; C1713; J0131; J0690; J1100; J1650; J1815; J2370; J2405; J3010; J3370; J7030; J7050; J7120; P9016

== ENCOUNTER 2017-11-05 12:16 | Inpatient (IN) | payer MEDICARE, OTHER ==
[~2017-11-05] VITALS: Ht 188 cm; Wt 86.0 kg
[~2017-11-05 12:16] MED LIST changes: +CALCTAB19 PO; +GLIM1TAB PO; -GLIM2TAB PO; -LISI-515 PO; +QUET1TAB8 PO; +SODI1TAB PO; +VITA500012 PO; +WALKER/ADULT/FO1 MIS; +XARE10TA PO
[2017-11-05 12:20] VITALS: BP 135/71; PULSE 85; RESP 16; TEMP 98.1; O2SAT 97
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
[2017-11-05 13:05] LABS: BASOPHIL % 0.3 % (0.0-2.0); EOSINOPHIL # 0.2 TH/MM3 (0-0.4); HEMOGLOBIN 12.2 GM/DL (13.0-17.0); LYMPH % 24.6 % (9.0-44.0); LYMPHOCYTE # 1.2 TH/MM3 (1.0-4.8); MEAN CELL VOLUME 83.8 FL (80.0-100.0); MEAN CORPUSCULAR HEMOGLOBIN 28.3 PG (27.0-34.0); MEAN CORPUSCULAR HGB CONC 33.8 % (32.0-36.0); MEAN PLATELET VOLUME 8.5 FL (7.0-11.0); MONO % 8.3 % (0.0-8.0); MONOCYTE # 0.4 TH/MM3 (0-0.9); NEUT % 62.8 % (16.0-70.0); PLATELET COUNT 180 TH/MM3 (150-450); WHITE BLOOD COUNT 4.8 TH/MM3 (4.0-11.0)
[2017-11-05] MEDS ORDERED: QUET1TAB7 PO (13:16)
[2017-11-05] MEDS ORDERED: [UNRECOGNIZED DRUG - OTHER] PO (13:16)
[2017-11-05] MEDS ORDERED: SENN8.6T8 (13:22)
[2017-11-05] MEDS ORDERED: FERR325T18 PO (13:22)
[2017-11-05] MEDS ORDERED: SERO50TA PO (13:22)
[2017-11-05 13:31] LABS: ALBUMIN 3.3 GM/DL (3.4-5.0); AST (GOT) 12 U/L (15-37); BICARBONATE 29.7 MEQ/L (21.0-32.0); BLOOD UREA NITROGEN 13 MG/DL (7-18); CALCIUM 8.4 MG/DL (8.5-10.1); CHLORIDE 110 MEQ/L (98-107); CREATININE 1.03 MG/DL (0.60-1.30); GLOMERULAR FILTRATION RATE 69 ML/MIN (>89); GLUCOSE,RANDOM 91 MG/DL (74-106); SODIUM (NA) 146 MEQ/L (136-145)
[2017-11-05 13:42] LABS: ALKALINE PHOSPHATASE 148 U/L (45-117); ALT (GPT) 15 U/L (12-78); TOTAL BILIRUBIN ADULT 0.5 MG/DL (0.2-1.0); TOTAL PROTEIN 6.3 GM/DL (6.4-8.2)
[2017-11-05 16:40] LABS: BILIRUBIN, URINE NEG (NEG); BLOOD, URINE NEG (NEG); GLUCOSE,URINE 70 mg/dL (NEG); KETONE, URINE NEG (NEG); MUCUS URINE FEW /lpf (OCC); NITRITE,URINE NEG (NEG); PH, URINE 5.5 (5.0-8.5); SQUAMOUS EPITHELIAL CELL URINE <1 /hpf (0-5); URINE COLOR YELLOW (YELLW/STRAW); URINE LEUKOCYTE ESTERASE NEG (NEG)
[2017-11-05 18:25] VITALS: BP 156/73; PULSE 68; RESP 16; TEMP 97.9; O2SAT 95
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
[2017-11-05] MEDS ORDERED: MAGNESIUM HYDROXIDE SUSP 30 ML CUP PO PRN (18:45)
[2017-11-05] MEDS ORDERED: ALUMINUM/MAGNESIUM/SIMETH 30 ML CUP PO PRN (18:45)
[2017-11-05] MEDS ORDERED: ACETAMINOPHEN 325 MG TAB PO PRN (18:45)
[2017-11-05] MEDS: SODIUM CHLORIDE 1 GRAM TAB PO SCH (21:00)
[2017-11-05] MEDS ORDERED: NON-FORMULARY DRUG (Calcium Carbonate-Vitamin D (Calcium 600+D 200) 1 TAB) PO SCH (21:00)
[2017-11-05] MEDS: MEMANTINE HCL 10 MG TAB PO SCH (21:30)
[2017-11-05] MEDS: DONEPEZIL HCL 5 MG TAB PO SCH (21:30)
[2017-11-05] MEDS: ATORVASTATIN 10 MG TAB PO SCH (21:30)
[2017-11-05 22:44] VITALS: BP 150/68; PULSE 62; RESP 18; O2SAT 93
[2017-11-06 06:00] VITALS: BP 150/68; PULSE 58; RESP 16; TEMP 98.5; O2SAT 92
[2017-11-06] MEDS: SODIUM CHLORIDE 1 GRAM TAB PO SCH ×2 (09:00→20:34)
[2017-11-06] MEDS: MEMANTINE HCL 10 MG TAB PO SCH ×2 (09:35→20:32)
[2017-11-06] MEDS: FERROUS SULFATE 325 MG (65 MG ELEMENTAL IRON) TAB PO SCH ×2 (09:36→18:00)
[2017-11-06] MEDS: CALCIUM/VITAMIN D 250 MG/125 U TAB PO SCH ×2 (09:36→20:31)
[2017-11-06] MEDS: ASPIRIN 81 MG CHEW TAB CHEW SCH (09:36)
[2017-11-06 09:40] LABS: BICARBONATE 28.8 MEQ/L (21.0-32.0); BLOOD UREA NITROGEN 12 MG/DL (7-18); CALCIUM 8.9 MG/DL (8.5-10.1); CHLORIDE 104 MEQ/L (98-107); CREATININE 1.05 MG/DL (0.60-1.30); GLOMERULAR FILTRATION RATE 67 ML/MIN (>89); GLUCOSE,RANDOM 138 MG/DL (74-106); SODIUM (NA) 144 MEQ/L (136-145)
[2017-11-06 09:41] LABS: CHOLESTEROL 169 MG/DL (120-200); TRIGLYCERIDES 78 MG/DL (42-150)
[2017-11-06 10:06] LABS: CHOLESTEROL/ HDL RATIO 3.35 RATIO; HDL CHOLESTEROL 50.3 MG/DL (40.0-60.0); LDL CHOLESTEROL 103 MG/DL (0-99)
[2017-11-06] MEDS ORDERED: HALOPERIDOL LACTATE 5 MG/ML AMP IM PRN (12:15)
--- NOTE | 2017-11-06 12:41 | HHI.HP ---
Provisional Diagnosis Admission Date Nov 05, 2017 at 18:45 [place] I. 1. 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 Deferred Certification of Person's Competence To Provide Express and Informed Consent I have personally examined Angel Lopez , a person being served at [facility] on, Nov 06, 2017 12:30. Express and informed consent means consent voluntarily given in writing, by a competent person, after sufficient explanation and disclosure of the subject matter involved to enable the person to make a knowing and willful decision without any element of force, fraud, deceit, duress, or other form of constraint or coercion. This person is 18 years of age or older, is not now known to be incompetent to consent to treatment with a guardian advocate, and does not have a health care surrogate or proxy currently making medical treatment decisions. I have found this person to be one of the following: [] Competent to provide express and informed consent, as defined above, for voluntary admission to this facility and is competent to provide express and informed consent for treatment. He/she has the consistent capacity to make well reasoned, willful, and knowing decisions concerning his or her medical or mental health treatment. The person fully and consistently understands the purpose of the admission for examination/placement and is fully capable of personally exercising all rights assured [place] [x] Incompetent to provide express and informed consent to voluntary admission, and this is incompetent to provide express and informed consent to treatment. The person must be transferred to involuntary status and a petition for a guardian advocate filed with the Circuit Court. [] Refusing to provide express and informed consent to voluntary admission but is competent to provide express and informed consent for treatment. The person must be discharged or transferred to involuntary status. Form shall be completed within 24 hours of a person's arrival at the receiving facility and filed in the clinical record of each person: 1. Admitted on a voluntary basis 2. Permitted to provide express and informed consent to his/her own treatment 3. Allowed to transfer from involuntary to voluntary status 4. Prior to permitting a person to consent to his or her own treatment after having been previously found incompetent to consent to treatment. History of Present Illness Capacity: Lacks Capacity Psych Chief Complaint: Behavioral disturbance in the setting of dementia HPI Mr. Lopez is an 87-year-old male with a history of dementia who presents under a Rivas act by law enforcement alleging aggressive behavior against . Patient was evaluated by the psychiatric nurse practitioner in the ED who obtained collateral information from the patient's . Reviewing the electronic medical record, I see no previous psychiatric consultations or admissions within our system. Patient seen and examined with nurse. Chart reviewed. Case discussed with nursing staff. No behavioral issues observed on the unit. On my examination today, patient is calm. He is fairly confused. He tells me "I got into a little altercation with my 's son. It was a dispute over 2 controls for the TV set in my room. They were going to take them away from me because I watch too much Valentin news." Patient denies any suicidal or homicidal ideation at this time. He does admit to mild dysphoria, but I can elicit no symptoms of severe depression. He does complain of some sleep disturbance. No hypomanic or manic symptoms. He denies any audiovisual hallucinations. I can elicit no delusional material. Remainder of the psychiatric ROS is negative. No acute physical complaints. Past psychiatric history: Patient follows with a neurologist for his dementia. He is not under the care of a psychiatrist. He denies any history of psychiatric admissions or suicide attempts. Denies any history of violent behavior. Unclear how reliable historian the patient is. Family history: Patient denies family history of mental illness. Chemical dependency history: The patient reports that he used to be a heavy drinker but quit drinking at age 40. Social history: Patient reports that he lives with his . He had a grade 11 education. 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 He denies any history. Denies any access to guns or firearms. Obtained collateral information from the patient's Mena at number listed in EMR. reports that the patient has struggled with dementia for the last 4-1/2 years. He has been maintained on Seroquel along with Aricept/Namenda, and the Seroquel has helped control behaviors but has caused excessive sedation at higher doses. Family is presently unsure whether they would like to have the patient placed, although they have explored this option in the past. is willing to serve as health care surrogate. I have discussed with her the risks and benefits of ongoing inpatient psychiatric hospitalization including the potential risks of fall, infection or other misadventure in a person of the patient's age. agrees that inpatient psychiatric hospitalization at this juncture is reasonable. I have reviewed the risks and benefits at length of patient psychotropic medications with particular focus on the potential risks of antipsychotic therapy. I have highlighted the black box warning regarding increased risk of in the demented elderly with antipsychotics. provides consent for medications as detailed below. Review of Systems ROS Limitations: Poor Historian Except as stated in HPI: all other systems reviewed are Neg Past Family Social History Coded Allergies: No Known Allergies (Verified Allergy, Unknown, 11/05/17) Past Medical History See electronic medical record Active Scripts Sodium Chloride (Sodium Chloride) 1 Gram Tab, 1 GM PO BID for orthostatic hypotension, #60 TAB 0 Refills Prov:Bina Pinto MD 06/04/17 Calcium Carbonate-Vitamin D (Calcium 600+D 200) 600-200 Mg-Unit Tab, 1 TAB PO BID for Nutritional Supplement, #90 TAB 0 Refills Prov:Lan White Jr. 06/02/17 Ergocalciferol (Ergocalciferol) 50,000 Unit Cap, 42429 UNITS PO Q7D for Nutritional Supplement, #8 CAP Prov:Lan White Jr. 06/02/17 Walker/Adult/Folding (Walker/Adult/Folding) 1 Mis ONI Huerta .ROUTE DIRECTED, # 1 0 Refills Prov:Lan White Jr. 06/02/17 Reported Medications Ferrous Sulfate (Ferrous Sulfate) 325 Mg (65 Mg Iron) Tablet, 325 MG PO BIDPC for Nutritional Supplement, #60 TAB 0 Refills 11/05/17 Quetiapine (Seroquel) 50 Mg Tab, 50 MG PO BID, #60 TAB 0 Refills 11/05/17 Sennosides-Docusate Sodium (Senna S) 8.6-50 Mg Tab 11/05/17 Quetiapine (Quetiapine) 25 Mg Tab, 25 MG PO DAILY, #30 TAB 0 Refills 11/05/17 [Dusteride] No Conflict Check, 20 MG PO DAILY 11/05/17 Escitalopram (Escitalopram) 20 Mg Tab, 20 MG PO DAILY, #30 TAB 0 Refills 01/19/17 Donepezil (Donepezil) 10 Mg Tab, 10 MG PO HS for Dementia, #30 TAB 0 Refills 01/19/17 Atorvastatin (Atorvastatin) 10 Mg Tab, 10 MG PO HS for Cholesterol Management, # 30 TAB 0 Refills 01/19/17 Memantine (Memantine) 10 Mg Tab, 10 MG PO BID for Alzheimer's Dementia, TAB 0 Refills 01/19/17 Aspirin (Aspirin Low Dose) 81 Mg Chew, 81 MG CHEW DAILY, TAB 0 Refills 01/19/17 Discontinued Reported Medications Quetiapine (Quetiapine) 100 Mg Tab, 100 MG PO HS for Agitation, #30 TAB 0 Refills 06/02/17 Quetiapine (Quetiapine) 50 Mg Tab, 75 MG PO DAILY, #30 TAB 0 Refills 06/01/17 Dutasteride (Dutasteride) 0.5 Mg Cap, 0.5 MG PO DAILY for Manage Prostate Problems, #30 CAP 0 Refills 01/19/17 Discontinued Scripts Glimepiride (Glimepiride) 1 Mg Tab, 1 MG PO DAILY for Blood Sugar Management, # 30 TAB 0 Refills Take with breakfast or first main meal Prov:Bina Pinto MD 06/04/17 Tramadol (Tramadol) 50 Mg Tab, 50 MG PO Q6H Y for PAIN, #15 TAB 0 Refills Prov:Bina Pinto MD 06/04/17 Rivaroxaban (Xarelto) 10 Mg Tab, 10 MG PO DAILY for Blood Clot Prevention, #14 TAB 0 Refills Prov:Lan White Jr. 06/02/17 Current Medications Medications (Trade) Dose Ordered Sig/Hemalatha Route Start Time Stop Time Status Last Admin (Tylenol) 650 mg Q4H PRN PO 11/05/17 18:45 (Milk Of Magnesia Liq) 30 ml DAILY PRN PO 11/05/17 18:45 (Mag-Al Plus Susp Liq) 30 ml Q6H PRN PO 11/05/17 18:45 (Aspirin Chew) 81 mg DAILY CHEW 11/06/17 09:00 11/06/17 09:36 (Lipitor) 10 mg HS PO 11/05/17 21:00 11/05/17 21:30 (Ferrous Sulfate) 325 mg BIDPC PO 11/06/17 09:00 11/06/17 09:36 (Sodium Chloride) 1 gm BID PO 11/05/17 21:00 (Aricept) 10 mg HS PO 11/05/17 21:00 11/05/17 21:30 (Namenda) 10 mg BID PO 11/05/17 21:00 11/06/17 09:35 (Oscal-D 250-125) 500 mg BID PO 11/06/17 09:00 11/06/17 09:36 Patient's Strengths (min. 2) In a monitored setting. Verbally fluent. Physical Exam Physical exam completed by ED provider. On my examination today, the patient appears to be in no acute physical distress. No motor abnormalities noted. Labs and vitals reviewed: Vital Signs Vital Signs Date Time Temp Pulse Resp B/P (MAP) Pulse Ox O2 Delivery O2 Flow Rate FiO2 11/06/17 06:00 98.5 58 16 150/68 (95) 92 11/05/17 18:25 Room Air I/O 11/06/17 11/06/17 11/07/17 08:00 16:00 00:00 Intake Total 240 ml Balance 240 ml Lab Results Test 11/05/17 15:45 11/06/17 08:08 Urine Color YELLOW Urine Turbidity CLEAR Urine pH 5.5 Urine Specific Doss 1.024 Urine Protein NEG mg/dL Urine Glucose (UA) 70 mg/dL Urine Ketones NEG mg/dL Urine Occult Blood NEG Urine Nitrite NEG Urine Bilirubin NEG Urine Urobilinogen LESS THAN 2.0 MG/DL Urine Leukocyte Esterase NEG Urine WBC 1 /hpf Urine Squamous Epithelial Cells <1 /hpf Urine Mucus FEW /lpf Microscopic Urinalysis Comment CULT NOT INDICATED Urine Opiates Screen NEG Urine Barbiturates Screen NEG Urine Amphetamines Screen NEG Urine Benzodiazepines Screen NEG Urine Cocaine Screen NEG Urine Cannabinoids Screen NEG Blood Urea Nitrogen 12 MG/DL Creatinine 1.05 MG/DL Random Glucose 138 MG/DL Calcium Level 8.9 MG/DL Sodium Level 144 MEQ/L Potassium Level 3.7 MEQ/L Chloride Level 104 MEQ/L Carbon Dioxide Level 28.8 MEQ/L Anion Gap 11 MEQ/L Estimat Glomerular Filtration Rate 67 ML/MIN Triglycerides Level 78 MG/DL Cholesterol Level 169 MG/DL LDL Cholesterol 103 MG/DL HDL Cholesterol 50.3 MG/DL Cholesterol/HDL Ratio 3.35 RATIO Vitamin B12 Level 511 PG/ML 25-Hydroxy Vitamin D Total 22.0 ng/ML EKG reviewed. QTC is 501 ms but QRS is widened at 145 ms and so QTC prolongation is likely spurious. Mental Status Examination Appearance: Appropriate Consciousness: Alert Orientation: Person Motor Activity: Other (Somewhat unsteady gait) Speech: Unremarkable Language: Other (Somewhat rambling) Fund of Knowledge: Inadequate Attention and Concentration: Easily Distracted Memory: Impaired Mood: Appropriate Affect: Appropriate Thought Process & Associations: Other (Slowed) Thought Content: Other (Some poverty of thought) Hallucination Type: None Delusion Type: None Suicidal Ideation: No Suicidal Plan: No Suicidal Intention: No Homicidal Ideation: No Homicidal Plan: No Homicidal Intention: No Insight: Poor Judgment: Poor Mental Status Exam Remarks Registration is 3 out of 3 and recall is 0 out of 3 at 3 minutes. He is able to spell the word world forward and backward. He is able to name 2 items and repeat a phrase. He is able with difficulty to remember the current president. His proverb interpretation is concrete. Assessment & Plan Problem List: (1) Dementia ICD Codes: F03.90 - Unspecified dementia without behavioral disturbance Assessment & Plan 87-year-old male with psychiatric history as detailed above who presents under Rivas act. On my examination today, the patient reports that presenting agitation was secondary to argument over television remote controls. Collateral from patient's obtained by nurse practitioner, which I have reviewed, and I have had further discussions with regarding medication management strategies going forward and placement wishes. Patient requires psychiatric hospitalization at this time for safety, observation and stabilization. Admit inpatient. Involuntary status. I have completed first opinion. Consult for second opinion. Request of care surrogate and guardian advocate. Discontinue Seroquel as higher doses have proved too sedating per collateral. I will instead replace this with Risperdal 0.5 mg twice daily with plans to titrate to effect. Haldol IM for severe agitation. QTc is prolonged but this is felt to be spurious in the setting of widened QRS. Melatonin as needed for sleep. I will continue the patient's Lexapro, Aricept and Namenda. R/B/A for medications reviewed with patient's /HCS. Consult hospitalist for medical evaluation and management. PT consult and fall precautions. Vitals every shift. Counselor to see. Disposition planning. Estimated length of stay: 7-9 days. Discharge Planning Pending psychiatric stabilization Request HC Surrog/Guard Advoc?: Yes Problem Qualifiers (1) Dementia: Qualified Codes: G30.1 - Alzheimer's disease with late onset; F02.81 - Dementia in other diseases classified elsewhere with behavioral disturbance Claudio Spivey MD Nov 06, 2017 12:41
[2017-11-06 13:30] LABS: HEMOGLOBIN A1C 5.2 % (4.3-6.0)
[2017-11-06 17:37] VITALS: BP 150/70; PULSE 64; RESP 18; TEMP 97.4; O2SAT 98
[2017-11-06] MEDS: DONEPEZIL HCL 5 MG TAB PO SCH (20:32)
[2017-11-06] MEDS: risperiDONE 0.5 MG TAB PO SCH (20:32)
[2017-11-06] MEDS: MELATONIN 5 MG TAB PO PRN (20:32)
[2017-11-06] MEDS: ATORVASTATIN 10 MG TAB PO SCH (20:32)
[2017-11-07 06:07] VITALS: BP 165/72; PULSE 63; RESP 12; TEMP 97.9; O2SAT 90
[2017-11-07] MEDS: risperiDONE 0.5 MG TAB PO SCH ×2 (09:35→20:27)
[2017-11-07] MEDS: FERROUS SULFATE 325 MG (65 MG ELEMENTAL IRON) TAB PO SCH ×2 (09:35→18:23)
[2017-11-07] MEDS: ESCITALOPRAM OXALATE 20 MG TAB PO SCH (09:35)
[2017-11-07] MEDS: SODIUM CHLORIDE 1 GRAM TAB PO SCH (09:35)
[2017-11-07] MEDS: CALCIUM/VITAMIN D 250 MG/125 U TAB PO SCH ×2 (09:36→20:28)
[2017-11-07] MEDS: MEMANTINE HCL 10 MG TAB PO SCH ×2 (09:36→20:27)
[2017-11-07] MEDS: ASPIRIN 81 MG CHEW TAB CHEW SCH (09:36)
--- NOTE | 2017-11-07 11:52 | PD.PSY.CON ---
Provisional Diagnosis Admission Date Nov 05, 2017 at 18:45 [place] I. 1. 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 Deferred History of Present Illness Service Psychiatry Consult Requested By Psychiatry Reason for Consult 2nd Opinion Primary Care Physician ZITA Eaton HPI Pt seen and discussed with nursing staff. Chart reviewed. He is an 87 YOWM admitted to [facility] for aggressive behavior. He has a hx of dementia and became aggressive with his causing bruising. He states that there was a conflict over his watching [employer]. He denies SI/HI. He denies AVH. He endorses some dysphoria and states that he has dementia ("there is no cure for me") . He has not previous psychiatric admissions. He denies any physical complaints. Past psychiatric history: Patient follows with a neurologist for his dementia. He is not under the care of a psychiatrist. He denies any history of psychiatric admissions or suicide attempts. Denies any history of violent behavior. Unclear how reliable historian the patient is. Family history: Patient denies family history of mental illness. Chemical dependency history: The patient reports that he used to be a heavy drinker but quit drinking at age 40. Social history: Patient reports that he lives with his . He had a grade 11 education. 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 He denies any history. Denies any access to guns or firearms. Past Family Social History Coded Allergies: No Known Allergies (Verified Allergy, Unknown, 11/05/17) Active Scripts Sodium Chloride (Sodium Chloride) 1 Gram Tab, 1 GM PO BID for orthostatic hypotension, #60 TAB 0 Refills Prov:Bina Pinto MD 06/04/17 Calcium Carbonate-Vitamin D (Calcium 600+D 200) 600-200 Mg-Unit Tab, 1 TAB PO BID for Nutritional Supplement, #90 TAB 0 Refills Prov:Lan White Jr. 06/02/17 Ergocalciferol (Ergocalciferol) 50,000 Unit Cap, 18288 UNITS PO Q7D for Nutritional Supplement, #8 CAP Prov:Lan White Jr. 06/02/17 Walker/Adult/Folding (Walker/Adult/Folding) 1 Mis Mis, EA .ROUTE DIRECTED, # 1 0 Refills Prov:Lan White Jr. 06/02/17 Reported Medications Ferrous Sulfate (Ferrous Sulfate) 325 Mg (65 Mg Iron) Tablet, 325 MG PO BIDPC for Nutritional Supplement, #60 TAB 0 Refills 11/05/17 Quetiapine (Seroquel) 50 Mg Tab, 50 MG PO BID, #60 TAB 0 Refills 11/05/17 Sennosides-Docusate Sodium (Senna S) 8.6-50 Mg Tab 11/05/17 Quetiapine (Quetiapine) 25 Mg Tab, 25 MG PO DAILY, #30 TAB 0 Refills 11/05/17 [Dusteride] No Conflict Check, 20 MG PO DAILY 11/05/17 Escitalopram (Escitalopram) 20 Mg Tab, 20 MG PO DAILY, #30 TAB 0 Refills 01/19/17 Donepezil (Donepezil) 10 Mg Tab, 10 MG PO HS for Dementia, #30 TAB 0 Refills 01/19/17 Atorvastatin (Atorvastatin) 10 Mg Tab, 10 MG PO HS for Cholesterol Management, # 30 TAB 0 Refills 01/19/17 Memantine (Memantine) 10 Mg Tab, 10 MG PO BID for Alzheimer's Dementia, TAB 0 Refills 01/19/17 Aspirin (Aspirin Low Dose) 81 Mg Chew, 81 MG CHEW DAILY, TAB 0 Refills 01/19/17 Discontinued Reported Medications Quetiapine (Quetiapine) 100 Mg Tab, 100 MG PO HS for Agitation, #30 TAB 0 Refills 06/02/17 Quetiapine (Quetiapine) 50 Mg Tab, 75 MG PO DAILY, #30 TAB 0 Refills 06/01/17 Dutasteride (Dutasteride) 0.5 Mg Cap, 0.5 MG PO DAILY for Manage Prostate Problems, #30 CAP 0 Refills 01/19/17 Discontinued Scripts Glimepiride (Glimepiride) 1 Mg Tab, 1 MG PO DAILY for Blood Sugar Management, # 30 TAB 0 Refills Take with breakfast or first main meal Prov:Bina Pinto MD 06/04/17 Tramadol (Tramadol) 50 Mg Tab, 50 MG PO Q6H Y for PAIN, #15 TAB 0 Refills Prov:Bina Pinto MD 06/04/17 Rivaroxaban (Xarelto) 10 Mg Tab, 10 MG PO DAILY for Blood Clot Prevention, #14 TAB 0 Refills Prov:Lan White Jr. 06/02/17 Current Medications Medications (Trade) Dose Ordered Sig/Hemalatha Route Start Time Stop Time Status Last Admin (Tylenol) 650 mg Q4H PRN PO 11/05/17 18:45 (Milk Of Magnesia Liq) 30 ml DAILY PRN PO 11/05/17 18:45 (Mag-Al Plus Susp Liq) 30 ml Q6H PRN PO 11/05/17 18:45 (Aspirin Chew) 81 mg DAILY CHEW 11/06/17 09:00 11/07/17 09:36 (Lipitor) 10 mg HS PO 11/05/17 21:00 11/06/17 20:32 (Ferrous Sulfate) 325 mg BIDPC PO 11/06/17 09:00 11/07/17 09:35 (Sodium Chloride) 1 gm BID PO 11/05/17 21:00 11/07/17 09:35 (Aricept) 10 mg HS PO 11/05/17 21:00 11/06/17 20:32 (Namenda) 10 mg BID PO 11/05/17 21:00 11/07/17 09:36 (Oscal-D 250-125) 500 mg BID PO 11/06/17 09:00 11/07/17 09:36 (risperDAL) 0.5 mg BID PO 11/06/17 21:00 11/07/17 09:35 (Haldol Inj) 1 mg Q6H PRN IM 11/06/17 12:15 (Melatonin) 5 mg HS PRN PO 11/06/17 21:00 11/06/17 20:32 (Lexapro) 20 mg DAILY PO 11/07/17 09:00 11/07/17 09:35 Patient's Strengths (min. 2) In a monitored setting. Verbally fluent. Family involvement Physical Exam Vital Signs Vital Signs Date Time Temp Pulse Resp B/P (MAP) Pulse Ox O2 Delivery O2 Flow Rate FiO2 11/07/17 06:07 97.9 63 12 165/72 (103) 90 11/05/17 18:25 Room Air Mental Status Examination Appearance: Appropriate Consciousness: Alert Orientation: Person Motor Activity: Other (Somewhat unsteady gait) Speech: Unremarkable Language: Other (Somewhat rambling) Fund of Knowledge: Inadequate Attention and Concentration: Easily Distracted Memory: Impaired Mood: Sad Affect: Sad Thought Process & Associations: Other (Slowed) Thought Content: Other (poverty of thought) Hallucination Type: None Delusion Type: None Suicidal Ideation: No Suicidal Plan: No Suicidal Intention: No Homicidal Ideation: No Homicidal Plan: No Homicidal Intention: No Insight: Poor Judgment: Poor Assessment & Plan Problem List: (1) Dementia ICD Codes: F03.90 - Unspecified dementia without behavioral disturbance Assessment & Plan I agree that given recent aggression, pt requires monitoring in a safe setting and meets criteria for involuntary hospitalization. 2nd opinon paperwork completed. Estimated LOS: days Request HC Surrog/Guard Advoc?: Yes Problem Qualifiers (1) Dementia: Qualified Codes: G30.1 - Alzheimer's disease with late onset; F02.81 - Dementia in other diseases classified elsewhere with behavioral disturbance Veronica Emery MD Nov 07, 2017 11:52
[2017-11-07] MEDS ORDERED: amLODIPine BESYLATE 5 MG TAB PO ONE (14:00)
[2017-11-07] MEDS ORDERED: ERGOCALCIFEROL (VIT D2) 50,000 UNIT CAP PO ONE (14:15)
[2017-11-07] MEDS ORDERED: cloNIDine HCL 0.1 MG TAB PO PRN (14:15)
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
--- NOTE | 2017-11-07 15:12 | EKG ---
Date Performed: 11/06/2017 Time Performed: 10:29:32 PTAGE: 87 years EKG: Sinus rhythm MARKED LEFT AXIS DEVIATION LEFT BUNDLE BRANCH BLOCK ABNORMAL ECG PREVIOUS TRACING : 06/01/2017 11.56 DOCTOR: Paul Qureshi Interpretating Date/Time 11/07/2017 15:11:14
[2017-11-07 17:33] VITALS: BP 179/77; PULSE 93; RESP 16; TEMP 97; O2SAT 90
[2017-11-07] MEDS: ATORVASTATIN 10 MG TAB PO SCH (20:27)
[2017-11-07] MEDS: DOCUSATE SODIUM 50 MG/SENNA 8.6 MG TAB PO SCH (20:27)
[2017-11-07] MEDS: DONEPEZIL HCL 5 MG TAB PO SCH (20:27)
[2017-11-08 06:10] VITALS: BP 142/72; PULSE 75; RESP 18; TEMP 98.2; O2SAT 95
[2017-11-08] MEDS: ESCITALOPRAM OXALATE 20 MG TAB PO SCH (08:26)
[2017-11-08] MEDS: MEMANTINE HCL 10 MG TAB PO SCH ×2 (08:26→20:21)
[2017-11-08] MEDS: FERROUS SULFATE 325 MG (65 MG ELEMENTAL IRON) TAB PO SCH ×2 (08:26→17:33)
[2017-11-08] MEDS: risperiDONE 0.5 MG TAB PO SCH ×2 (08:26→20:21)
[2017-11-08] MEDS: CALCIUM/VITAMIN D 250 MG/125 U TAB PO SCH ×2 (08:26→20:21)
[2017-11-08] MEDS: ASPIRIN 81 MG CHEW TAB CHEW SCH (08:27)
[2017-11-08] MEDS: DOCUSATE SODIUM 50 MG/SENNA 8.6 MG TAB PO SCH ×2 (08:27→20:21)
[2017-11-08] MEDS ORDERED: amLODIPine BESYLATE 5 MG TAB PO SCH (09:00)
--- NOTE | 2017-11-08 09:50 | HHI.PYPN ---
Subjective Chief Complaint: Behavioral disturbance in the setting of dementia Remarks Patient seen and examined. Chart reviewed. Case discussed with nursing staff. Per nursing staff, patient has been very pleasant with no behaviors. On my examination today, the patient is calm and cooperative. He remains forgetful. No psychotic symptoms. No SI or HI. Denies side effects from medications. Complains of some urinary frequency but otherwise has no acute physical complaints. Spoke with patient's Mena over the phone. She notes that she spoke with the patient over the weekend and he seemed to have a "good demeanor on the phone." She has spoken with the rest of the family, and they have coalesced around desire for placement for the patient. They are looking into placement at [facility]. I have related this to the counselor who will assist with further efforts at placement. I spent 7 minutes in telephone consultation with patient's . Review of Systems ROS Limitations: Poor Historian Except as stated in HPI: all other systems reviewed are Neg Mental Status Examination Appearance: Appropriate Consciousness: Alert Orientation: Person Motor Activity: Other (No motor abnormalities noted) Speech: Unremarkable Language: Other (Somewhat rambling) Fund of Knowledge: Inadequate Attention and Concentration: Easily Distracted Memory: Impaired Mood: Appropriate Affect: Blunt Thought Process & Associations: Other (Slowed) Thought Content: Other (Ongoing poverty of thought) Hallucination Type: None Delusion Type: None Suicidal Ideation: No Suicidal Plan: No Suicidal Intention: No Homicidal Ideation: No Homicidal Plan: No Homicidal Intention: No Insight: Poor Judgment: Poor Results Labs Labs reviewed. Vitals/IOs Vital Signs Date Time Temp Pulse Resp B/P (MAP) Pulse Ox O2 Delivery O2 Flow Rate FiO2 11/08/17 06:10 98.2 75 18 142/72 (95) 95 11/05/17 18:25 Room Air Intake and Output 11/08/17 11/08/17 11/09/17 08:00 16:00 00:00 Intake Total 240 ml Balance 240 ml Assessment & Plan Problem List: (1) Dementia ICD Codes: F03.90 - Unspecified dementia without behavioral disturbance Assessment & Plan Continue Risperdal as ordered. Behavior is well controlled. Continue other psychotropics as ordered. Hospitalist input noted and appreciated. Continue to monitor on inpatient unit. Continue other medications and care as ordered. Justification for Cont. Inpt. Risk for decompensation in less restrictive environment. Discharge Planning Placement. Counselor on the case. Request HC Surrog/Guard Advoc?: Yes Problem Qualifiers (1) Dementia: Qualified Codes: G30.1 - Alzheimer's disease with late onset; F02.81 - Dementia in other diseases classified elsewhere with behavioral disturbance Claudio Spivey MD Nov 08, 2017 09:50
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
[2017-11-08 16:01] VITALS: BP_SYST 129; BP_SYST 133; BP_SYST 147; BP_DIAS 61; BP_DIAS 66; BP_DIAS 70; PULSE 61; RESP 18
[2017-11-08 17:27] VITALS: BP 157/76; PULSE 73; RESP 18; TEMP 98.2; O2SAT 95
[2017-11-08] MEDS: ATORVASTATIN 10 MG TAB PO SCH (20:21)
[2017-11-08] MEDS: DONEPEZIL HCL 5 MG TAB PO SCH (20:21)
[2017-11-09 06:06] VITALS: BP 144/68; PULSE 72; RESP 18; TEMP 98.1; O2SAT 93
[2017-11-09] MEDS: FERROUS SULFATE 325 MG (65 MG ELEMENTAL IRON) TAB PO SCH ×2 (08:41→17:57)
[2017-11-09] MEDS: risperiDONE 0.5 MG TAB PO SCH ×2 (08:41→20:28)
[2017-11-09] MEDS: MEMANTINE HCL 10 MG TAB PO SCH ×2 (08:41→20:28)
[2017-11-09] MEDS: DOCUSATE SODIUM 50 MG/SENNA 8.6 MG TAB PO SCH ×2 (08:41→20:28)
[2017-11-09] MEDS: CALCIUM/VITAMIN D 250 MG/125 U TAB PO SCH ×2 (08:42→20:28)
[2017-11-09] MEDS: ESCITALOPRAM OXALATE 20 MG TAB PO SCH (08:42)
[2017-11-09] MEDS: ASPIRIN 81 MG CHEW TAB CHEW SCH (08:42)
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
--- NOTE | 2017-11-09 12:51 | HHI.PYPN ---
Subjective Chief Complaint: Behavioral disturbance in the setting of dementia Remarks Patient seen and examined. Chart reviewed. Case discussed with nursing staff. Case discussed with nursing staff. No behavioral issues noted. Case discussed with counselor who has administered MMSE, patient scored a 24/30. On my exam, patient is calm and cooperative. No psychotic material. No SI or HI. Hopeful for discharge soon. No side effects from medications. No physical complaints. Review of Systems ROS Limitations: Poor Historian Except as stated in HPI: all other systems reviewed are Neg Mental Status Examination Appearance: Appropriate Consciousness: Alert Orientation: Person Motor Activity: Other (No abnormal motor movements noted) Speech: Unremarkable Language: Other (Somewhat rambling) Fund of Knowledge: Inadequate Attention and Concentration: Easily Distracted Memory: Impaired Mood: Appropriate Affect: Blunt Thought Process & Associations: Other (Slowed) Thought Content: Other (Some poverty of thought) Hallucination Type: None Delusion Type: None Suicidal Ideation: No (No SI voiced) Homicidal Ideation: No (No HI voiced) Insight: Poor Judgment: Poor Results Labs Labs reviewed. No new labs. Vitals/IOs Vital Signs Date Time Temp Pulse Resp B/P (MAP) Pulse Ox O2 Delivery O2 Flow Rate FiO2 11/09/17 06:06 98.1 72 18 144/68 (93) 93 11/05/17 18:25 Room Air Intake and Output 11/09/17 11/09/17 11/10/17 08:00 16:00 00:00 Intake Total 600 ml Balance 600 ml Assessment & Plan Problem List: (1) Dementia ICD Codes: F03.90 - Unspecified dementia without behavioral disturbance Assessment & Plan Continue Risperdal as ordered. MMSE is not as low as might be expected, I will request neuropsychology eval to further delineate patient's cognitive impairments. Continue to monitor on inpatient unit. Continue other medications and care as ordered. Justification for Cont. Inpt. Risk for decompensation in less restrictive environment Discharge Planning Possible placement Request HC Surrog/Guard Advoc?: Yes Problem Qualifiers (1) Dementia: Qualified Codes: G30.1 - Alzheimer's disease with late onset; F02.81 - Dementia in other diseases classified elsewhere with behavioral disturbance Claudio Spivey MD Nov 09, 2017 12:51
[2017-11-09 17:45] VITALS: BP 103/61; PULSE 91; RESP 16; TEMP 98.8; O2SAT 95
[2017-11-09] MEDS: ATORVASTATIN 10 MG TAB PO SCH (20:28)
[2017-11-09] MEDS: MELATONIN 5 MG TAB PO PRN (20:28)
[2017-11-09] MEDS: DONEPEZIL HCL 5 MG TAB PO SCH (20:28)
[2017-11-10 05:59] VITALS: BP 153/74; PULSE 79; RESP 18; TEMP 97.9; O2SAT 93
[2017-11-10] MEDS: FERROUS SULFATE 325 MG (65 MG ELEMENTAL IRON) TAB PO SCH ×2 (09:40→17:15)
[2017-11-10] MEDS: risperiDONE 0.5 MG TAB PO SCH ×2 (09:40→20:52)
[2017-11-10] MEDS: MEMANTINE HCL 10 MG TAB PO SCH ×2 (09:40→20:53)
[2017-11-10] MEDS: DOCUSATE SODIUM 50 MG/SENNA 8.6 MG TAB PO SCH ×2 (09:41→20:53)
[2017-11-10] MEDS: ESCITALOPRAM OXALATE 20 MG TAB PO SCH (09:41)
[2017-11-10] MEDS: CALCIUM/VITAMIN D 250 MG/125 U TAB PO SCH ×2 (09:41→20:52)
[2017-11-10] MEDS: ASPIRIN 81 MG CHEW TAB CHEW SCH (09:41)
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
--- NOTE | 2017-11-10 11:01 | HHI.PYPN ---
Subjective Chief Complaint: Behavioral disturbance in the setting of dementia Remarks Patient seen and examined. Chart reviewed. Case discussed with nurse. On my exam today, patient is somewhat more somber than I have seen him in previous visits. He tells me that he is worried that he has Alzheimer dementia. We discuss the diagnosis of dementia and HECTOR in particular. We discuss plans for neuropsych eval today to help delineate his cognitive challenges. Support provided. No SI or HI. He is calm and cooperative with exam. No side effects from medications. No physical complaints. Review of Systems Except as stated in HPI: all other systems reviewed are Neg Mental Status Examination Appearance: Appropriate Consciousness: Alert Orientation: Person Motor Activity: Other (No motoric abnormalities appreciated) Speech: Unremarkable Language: Other (Somewhat rambling) Fund of Knowledge: Inadequate Attention and Concentration: Easily Distracted Memory: Impaired Mood: Other (Somewhat more somber today) Affect: Blunt Thought Process & Associations: Other (Slowed) Thought Content: Other (Some poverty of thought) Hallucination Type: None Delusion Type: None Suicidal Ideation: No (No SI voiced) Homicidal Ideation: No (No HI voiced) Insight: Poor Judgment: Poor Results Labs Labs reviewed Vitals/IOs Vital Signs Date Time Temp Pulse Resp B/P (MAP) Pulse Ox O2 Delivery O2 Flow Rate FiO2 11/10/17 05:59 97.9 79 18 153/74 (100) 93 Intake and Output 11/10/17 11/10/17 11/11/17 08:00 16:00 00:00 Intake Total 480 ml Balance 480 ml Assessment & Plan Problem List: (1) Dementia ICD Codes: F03.90 - Unspecified dementia without behavioral disturbance Assessment & Plan Continue current psychotropics as ordered. Neuropsychological evaluation ordered for today. Hospitalist input noted and appreciated. Continue other medications and care as ordered. Justification for Cont. Inpt. Risk for decompensation in less restrictive environment. Discharge Planning Possible placement. I have left a voicemail for the counselor. Request HC Surrog/Guard Advoc?: Yes Problem Qualifiers (1) Dementia: Qualified Codes: G30.1 - Alzheimer's disease with late onset; F02.81 - Dementia in other diseases classified elsewhere with behavioral disturbance Claudio Spivey MD Nov 10, 2017 11:01
[2017-11-10] MEDS ORDERED: PILL SPLITTER OTHER PRN (14:00)
--- NOTE | 2017-11-10 15:08 | PD.HHIRCNE ---
Disclaimer Patient was given an explanation of the nature and purpose of the evaluation. Patient agreed to proceed with the evaluation and treatment plan. History Reason for Referral The patient is an 87 year old right handed male with a history of major neurocognitive disorder (previously referred to as dementia) who was admitted to the psychiatry unit on 11/05/2017 under [place] Act for aggressive behavior. It is noted that he is followed by a neurologist for his major neurocognitive disorder. Chart reported that he has 11th grade education, but the patient indicated that he has college education, originally from [place]. Prior work in [employer]. No history. Chart notes that he has suffered cognitive decline over the past five years. He appears aware of his cognitive decline. He is referred for baseline neuropsychological evaluation to assess cognitive, behavioral and emotional aspects of his clinical presentation, and provide treatment recommendations. Additional Psychosocial Hx Smoking Status: Unknown If Ever Smoked Hx Caffeine Use: Yes Hx Substance Use: No Level of Education: College Prior Living Setting: Home Dominant Hand: Right Past Surgical/Medical History Past Surgery: Yes Major surgery in last 100 days: No Hx Anesthesia Reactions: No Hx Orthopedic Surgery: Yes (SMALL FX TO LEFT PATELLA YEARS AGO) Hx Cardiac Surgery: No Hx Chest Surgery: No Hx Abdominal Surgery: Yes (APPENDIX) Hx Genitourinary Surgery: No Hx Endocrine Surgery: No Hx Eye Surgery: Yes (CATARACTS) Hx Oral Surgery: Yes (TONSILS/ADNOIDS) History of Transplant: No Hx of Neuro Prob: No Hx Seizures: No Cephalgia (Headaches): No Hx Migraines: No Hx Head Injury: No Hx Falls: No Hx Cerebrovascular Accident: No Hx Dizziness: No Hx Numbness: No Hx of Musculoskeletal Pro: No Hx Arthritis: No Hx Osteoporosis: No Hx Neck Problems: No Hx Back Problem: No Hx of Cardiovascular Prob: No Hypertension (High Blood Press: Yes Hx Clotting Problems: No Venous Thromboembolism Present: No Hx Chest Pain: No Hx Lightheadedness: No Hx Congestive Heart Failure: No Syncope (Fainting): No Hx of Respiratory Problem: No Hx Asthma: No Hx Wheezing: No Hx Chronic Obstructive Pulmona: No Hx Dyspnea: No Hx Snoring: No Hx Emphysema: No Hx Sleep Apnea: No Hx of GI Problems: Yes (PARASITES TO COLON, DIVERTICULOSIS) Hx Heartburn: Yes Hx Gastroesophageal Reflux: No Hx Hiatal Hernia: No Hx Ulcer: No Hx Liver Disease: No Hx Gallbladder Disease: No Hx Inflammatory Bowel Disease: No Hx of Problems: No Hx Renal Disease: No Hx Renal Failure: No Hx Kidney Transplant: No Hx Kidney Stones: No Hx Nephrectomy: No Hx Infection: No Hx Prostate Problems: Yes (ENLARGED PROSTATE) Hx Genital Problems: No Hx of Immuno Disor: No Hx Autoimmune Disease: No Hx of Endocrine Problems: Yes Hx Thyroid Disease: No Hx Diabetes: No Does Patient Currently Take Gl: No Hx of Eye Probl: Yes Hx of Cataracts: Bilateral Hx of Hearing or Ear Problems: No Hard of Hearing: Bilateral Hx Dental Problems: No Hx Psychiatric Problems: No Hx Anxiety: No Hx Depression: No Hx Blood Dyscrasias: No Hx Sickle Cell Disease: No Hx Thrombocytopenia: No Hx Hemophilia: No Hx of Heparin Induced Thr: No Hx of MDRO: No Hx of MRSA: No Hx of VRE: No Hx of CDIFF: No Hx of Tuberculosis: No Hx Chicken Pox: Yes Hx Measles: No Hx of Body/Medical Devices: No Hx Pacemaker: No Hx Internal Defibrillator: No Central Line/Ports (Type): No Hx Joint Replacement: No Insulin Pump: No Hx Arteriovenous Shunt: No Hx Dental Implants: No Hx Eye Prosthesis: No Genitourinary Device: No Genitourinary Ostomy: No Gastrointestinal Ostomy: No Blood Transfusion History Will receive Blood /Blood prod: Yes Hx Blood Transfusions: No Hx Blood Transfusion Reaction: No Medication Active Medications Amlodipine Besylate (Norvasc) 2.5 mg DAILY PO; Start 11/11/17 at 09:00 Miscellaneous (Pill Splitter) 1 ea UNSCH PRN OTHER; Start 11/10/17 at 14:00 Mental Status Assessment Orientation: oriented to Self, oriented to Situation, disoriented to Place, disoriented to Time Mental Status: WFL: Attention, Impaired: Thought processing, Language/ Interactions, Learning/Memory, Problem-Solving Adjustment/Coping Assessment Adjustment/Coping: None: Depression, Anxiety, Severe: Awareness, Insight Observation In terms of emotional functioning, the patient demonstrated challenges. This patient demonstrated no signs of agitation, impulsivity or disinhibition, nor was there remarkable evidence of a formal thought disorder or psychosis. There was minimal evidence of depression or anxiety. The Geriatric Depression Scale- Short Form was administered given the ease to which it is administered to persons with known neurological pathology, and the patient endorsed only four of 15 symptoms, which falls within the non depressed range. Thought content was free from suicidal, homicidal or paranoid ideation, and thought processes were tangential, concrete and at times perseverative. The patients mood was euthymic, and his affect was stable and appropriate. The patient appears to possess limited insight and awareness into his situation and within the limits of this brief evaluation, poor judgment. LTG Status: Deferred STG Status: Deferred Team Members: Neuropsychologist Effort Assessment Effort: Average Cognition Assessment Rating: Variable: Visual Perception, Spatial Judgement, Impaired: Attention/ Processing, Language, Immediate & Delayed Memor, Executive, Awareness-Insight Adjustm Observation The patient was alert and oriented to person and to a minimal extent the circumstances surrounding the recent hospitalization. He was not oriented to date other than 2018, and he reported that he was in [place], not knowing the current city of [facility], and was adamant that we were on the 32nd floor, even when provided evidence to the contrary. The Mini-Mental State Exam was administered, and the patient obtained a score of 20 out of 30 points, which falls in the mild to moderately impaired range. Additionally, on further evaluation, specific deficits were identified. In terms of attention skills, the patient exhibited relatively normal abilities. The patient was able to remain on task and remember basic and most complex verbal instructions. Complicating assessment of his attentional skills were language difficulties, described in more detail below. In terms of memory functioning, the patient exhibited challenges. The patients initial registration of verbal information was impaired, and the patient was unable to improve their memory with repetition. After a period of delay, the patient was unable to recall this information from memory. Recognition performance for this information fell at a chance level of responding. More specifically, on the Luria Memory Words Test- Short Form, the patients trial one performance was zero of 7 words, trial five performance was 2 of 7 words, the patients Total Learning score was 10 (well below cut-off), and the patients Delayed recall score was 0 of 7 words (well below cut-off). The patients ability to recall verbal information in a paragraph format was also considered impaired. In terms of speech and language skills, the patient demonstrated significant challenges. The patient s initiated spontaneous conversation throughout the assessment. Speech was characterized by adequate prosody, grammar, articulation, volume and rate. However, significant dysnomic and paraphasic errors were noted either during conversational speech and on confrontation naming tasks. However, reading recognition skills were adequate, as were writing skills. On the reading recognition subtest of the WRAT-4, the patient earned a standard score of 123 ( percentile rank of 94), which would be consistent with an individual with college level of education. The patients comprehension for basic one- and two- stage commands was relatively normal. In terms of problem-solving skills, the patient exhibited challenges. The patients ability to understand abstraction reasoning was quite abnormal, as reflected in his inability to abstract essential shared characteristics of objects and concepts. Mathematical reasoning skills were also abnormal. Speed of information processing, as evaluated by both the Letter and Category Fluency Tests was abnormal. Finally, there was no evidence of ideomotor apraxia or constructional difficulties during this brief evaluation. Summary/Diagnosis Summary Neuropsychological evaluation results demonstrate a edith memory disorder, and significant dysnomic and paraphasic errors, in addition to impaired abstract reasoning, calculation and processing speed skills. Emotionally, he generally denies depressive or anxious affect, but does seem aware of his memory decline. His decision making capacity at this point in his disease process is compromised, as he demonstrated impaired insight, awareness and judgment. These results are clearly inconsistent with the normal aging process or the singular effects of emotional distress on cognition. The overall constellation of neuropsychological signs in combination with his medical history is consistent with a major neurocognitive disorder (previously referred to as dementia). In the absence of biomedical causes for his neurocognitive decline, the most parsimonious diagnosis would be major neurocognitive disorder due to Alzheimer's disease. Impressions Major Neurocognitive Disorder due to Alzheimer's disease. Diagnosis: (1) Major neurocognitive disorder due to Alzheimer's disease, probable, with behavioral disturbance Recommendations Recommendations Recommendations (1) This patient is not considered to be cognitively capable of making decisions of a legal, financial and medical nature, and as such it is my clinical opinion that he lacks decision making capacity. He demonstrates the impaired ability to appreciate a situation and its likely consequences and he demonstrates the impaired ability to manipulate information rationally. He does not appear capable of managing his own funds. (2) Continued medical evaluation to rule out reversible causes for his neurocognitive decline is recommended. Such evaluation could include neuroimaging procedures to assist in diagnosis and to correlate with these neuropsychological evaluation results. Specifically, I would expect to see hippocampal sclerosis. Pharmacological interventions designed to reduce the progression of his memory impairment is also recommended, unless medically contraindicated. Additionally, I would be happy to reevaluate this patient again in approximately one year in order to assist in monitoring his cognitive dysfunction. (3) This patient and his family requires outside assistance for his care. Presently, this patient is functioning at a Global Deterioration Scale level of 5, which functionally means for his that he can no longer survive at home without some assistance. During interview, he was unable to recall relevant aspects of his life; he was disoriented, in addition to the cognitive impairments described in this report. Given these neuropsychological evaluation results, he essentially should not be living alone or at least without significant outside assistance. Session Attendance Variance 60 minutes Teodoro Rolon PhD Nov 10, 2017 3:08 pm
[2017-11-10 18:00] VITALS: BP 131/69; PULSE 74; RESP 18; TEMP 97.2; O2SAT 94
[2017-11-10] MEDS: DONEPEZIL HCL 5 MG TAB PO SCH (20:52)
[2017-11-10] MEDS: ATORVASTATIN 10 MG TAB PO SCH (20:53)
[2017-11-11 06:09] VITALS: BP 153/74; PULSE 71; RESP 16; TEMP 98.3; O2SAT 94
[2017-11-11] MEDS: MEMANTINE HCL 10 MG TAB PO SCH ×2 (09:06→20:47)
[2017-11-11] MEDS: ESCITALOPRAM OXALATE 20 MG TAB PO SCH (09:06)
[2017-11-11] MEDS: ASPIRIN 81 MG CHEW TAB CHEW SCH (09:06)
[2017-11-11] MEDS: DOCUSATE SODIUM 50 MG/SENNA 8.6 MG TAB PO SCH ×2 (09:06→20:47)
[2017-11-11] MEDS: CALCIUM/VITAMIN D 250 MG/125 U TAB PO SCH ×2 (09:06→20:47)
[2017-11-11] MEDS: amLODIPine BESYLATE 5 MG TAB PO SCH (09:06)
[2017-11-11] MEDS: FERROUS SULFATE 325 MG (65 MG ELEMENTAL IRON) TAB PO SCH ×2 (09:07→18:00)
[2017-11-11] MEDS: risperiDONE 0.5 MG TAB PO SCH ×2 (09:07→20:47)
--- NOTE | 2017-11-11 10:33 | HHI.PYPN ---
Subjective Chief Complaint: Behavioral disturbance in the setting of dementia Remarks Patient seen and case was discussed with nursing staff. Chart reviewed. Per nursing staff, patient has been no behavioral problem. For me, patient is calm and in behavioral control. He remains confused. He rambles a little bit about his and daughter. No side effects from medications. No physical complaints. Patient's case was presented to the Rivas act court, and the avionics electrical engineer has ordered that the patient be discharged by noon on Wednesday. If the patient is not discharged, the avionics electrical engineer orders that avionics electrical engineer be notified, at which point he will order a continuance for one week. Review of Systems ROS Limitations: Poor Historian Other Limited ROS Mental Status Examination Appearance: Appropriate Consciousness: Alert Orientation: Person Motor Activity: Other (No abnormal motor movements noted) Speech: Unremarkable Language: Other (Somewhat rambling) Fund of Knowledge: Inadequate Attention and Concentration: Easily Distracted Memory: Impaired Mood: Other (Calm) Affect: Blunt Thought Process & Associations: Other (Slowed) Thought Content: Other (Some poverty of thought) Hallucination Type: None Delusion Type: None Suicidal Ideation: No (No SI voiced) Homicidal Ideation: No (No HI voiced) Insight: Poor Judgment: Poor Results Labs Labs reviewed Vitals/IOs Vital Signs Date Time Temp Pulse Resp B/P (MAP) Pulse Ox O2 Delivery O2 Flow Rate FiO2 11/11/17 06:09 98.3 71 16 153/74 (100) 94 Intake and Output 11/11/17 11/11/17 11/12/17 08:00 16:00 00:00 Intake Total 360 ml Balance 360 ml Assessment & Plan Problem List: (1) Dementia ICD Codes: F03.90 - Unspecified dementia without behavioral disturbance Assessment & Plan Continue current psychotropics as ordered. Continue to monitor on the inpatient unit. Neuropsychology input noted and appreciated. Continue other medications and care as ordered. Justification for Cont. Inpt. Risk for decompensation in less restrictive environment. Discharge Planning Placement, possibly tomorrow Request HC Surrog/Guard Advoc?: Yes Problem Qualifiers (1) Dementia: Qualified Codes: G30.1 - Alzheimer's disease with late onset; F02.81 - Dementia in other diseases classified elsewhere with behavioral disturbance Claudio Spivey MD Nov 11, 2017 10:33
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
[2017-11-11 17:42] VITALS: BP 134/63; PULSE 74; RESP 17; TEMP 97.7; O2SAT 95
[2017-11-11] MEDS: DONEPEZIL HCL 5 MG TAB PO SCH (20:47)
[2017-11-11] MEDS: ATORVASTATIN 10 MG TAB PO SCH (20:47)
[2017-11-12 05:42] VITALS: BP 133/66; PULSE 77; RESP 17; TEMP 97.6; O2SAT 93
[2017-11-12] MEDS: DOCUSATE SODIUM 50 MG/SENNA 8.6 MG TAB PO SCH (09:13)
[2017-11-12] MEDS: amLODIPine BESYLATE 5 MG TAB PO SCH (09:13)
[2017-11-12] MEDS: CALCIUM/VITAMIN D 250 MG/125 U TAB PO SCH (09:14)
[2017-11-12] MEDS: MEMANTINE HCL 10 MG TAB PO SCH (09:14)
[2017-11-12] MEDS: ESCITALOPRAM OXALATE 20 MG TAB PO SCH (09:14)
[2017-11-12] MEDS: FERROUS SULFATE 325 MG (65 MG ELEMENTAL IRON) TAB PO SCH (09:14)
[2017-11-12] MEDS: ASPIRIN 81 MG CHEW TAB CHEW SCH (09:14)
[2017-11-12] MEDS: risperiDONE 0.5 MG TAB PO SCH (09:14)
[2017-11-12] MEDS ORDERED: DONE10TA7 PO (09:43)
[2017-11-12] MEDS ORDERED: ESCI20TA PO (09:43)
[2017-11-12] MEDS ORDERED: RISP0.5T25 PO (09:43)
[2017-11-12] MEDS ORDERED: FERR325T18 PO (09:43)
[2017-11-12] MEDS ORDERED: MELA5 PO (09:43)
[2017-11-12] MEDS ORDERED: ASPI81CH6 CHEW (09:43)
[2017-11-12] MEDS ORDERED: ATOR10TA15 PO (09:43)
[2017-11-12] MEDS ORDERED: AMLO5 PO (09:43)
[2017-11-12] MEDS ORDERED: PERI PO (09:43)
[2017-11-12] MEDS ORDERED: MEMA1TAB2 PO (09:43)
--- NOTE | 2017-11-12 09:43 | HHI.DS ---
Psychiatry Discharge Summary Inpatient Psychiatric care?: Yes Advance Directive: No Reason Not Provided: none provided Mental Health AdvanceDirective: No Health Care Proxy: No Admission Admission Date Nov 05, 2017 at 18:45 Admission Diagnosis: (1) Dementia ICD Code: F03.90 - Unspecified dementia without behavioral disturbance Brief History Pt seen and discussed with nursing staff. Chart reviewed. He is an 87 YOWM admitted to [facility] for aggressive behavior. He has a hx of dementia and became aggressive with his causing bruising. He states that there was a conflict over his watching [employer]. He denies SI/HI. He denies AVH. He endorses some dysphoria and states that he has dementia ("there is no cure for me") . He has not previous psychiatric admissions. He denies any physical complaints. Tobacco Use In Past 30 Days: No Tobacco Past 30 Days Alcohol Use: 2-3 Times Per Week Hospital Course Patient was admitted to a locked, inpatient psychiatric unit. A general medical consultation was obtained. A neuropsychological evaluation was obtained. Appropriate precautions were in place throughout patient's hospital stay. Patient was seen and examined on the unit by psychiatry and also visited by counselor. Psychotropic medications were adjusted. Patient tolerated medications well without side effects. Patient had improvement in presenting psychiatric symptomatology during the course of his hospital stay. There was no evidence of any suicidality or homicidality on the inpatient unit. On the day of discharge: Patient seen and examined. Chart reviewed. Case discussed with nursing staff. No behavioral issues noted overnight. Case discussed in treatment team. Counselor has arranged for placement for patient today. On my examination today, the patient is calm and cooperative. He denies any suicidal or homicidal ideation, intent or plan. I can elicit no depressive or hypomanic/ manic symptoms. He denies any audiovisual hallucinations. I can elicit no delusional material. He remains confused as at recent baseline. He denies any side effects from medications. He has no physical complaints. I have discussed with patient the plan for placement today, and he offers no objection to this plan. Suicide and violence risk assessment both suggest lower imminent risk of harm to self or others from a mental illness as defined under the [place] act, although the patient is somewhat chronically unpredictable as a consequence of his dementia. Level of function is adequate for planned level of outpatient care. Patient has maximized benefit from this inpatient psychiatric hospital stay. He will be discharged today with psychiatric follow- up as arranged by counselor. Patient is also to follow up with primary care. Patient to return to psychiatric emergency room for any concerning psychiatric symptoms as part of a general safety plan. Results Blood Pressure 133 / 66 Vital Signs Date Time Temp Pulse Resp B/P (MAP) Pulse Ox O2 Delivery O2 Flow Rate FiO2 11/12/17 05:42 97.6 77 17 133/66 (88) 93 Laboratory Results Test 11/06/17 08:08 Cholesterol Level 169 MG/DL (120-200) HDL Cholesterol 50.3 MG/DL (40.0-60.0) Hemoglobin A1c 5.2 % (4.3-6.0) LDL Cholesterol 103 MG/DL (0-99) Triglycerides Level 78 MG/DL (42-150) Summary of Procedures None done Imaging None done Pending results at discharge: No Medications # of Antipsychotic meds at D/C: 1 Approp Antipsych med options 1 - Minimum of three failed multiple trials of monotherapy. 2 - Documented plan to taper to monotherapy due to previous use of multiple meds OR cross-taper in progress at D/C. 3 - Documentation of augmentation of Clozapine. 4 - Justification other than those listed in allowable values 1-3, document here : Discharge Discharge Date: Nov 12, 2017 Discharge Diagnosis: (1) Major neurocognitive disorder due to Alzheimer's disease, probable, without behavioral disturbance Diagnosis: Principal ICD Code: G30.9 - Alzheimer's disease, unspecified; F02.80 - Dementia in other diseases classified elsewhere without behavioral disturbance Pt Condition on Discharge: Stable Discharge Disposition: ACLF/RESIDENTIAL Discharge Instructions Diet Instructions: Heart Healthy Diet Activities you can perform: Weight Bearing as Leyda Scheduled Appointment: As per counselors notes New Orders: CBC WITH DIFF - 1 Week COMP MET PROF (CMP) - 1 Week New Medications: Amlodipine (Norvasc) 5 Mg Tab 2.5 MG PO DAILY for Blood Pressure Management for 15 Days, #8 TAB 1 Refill Melatonin (Melatonin) 5 Mg Tab 5 MG PO HS PRN for Insomnia for 15 Days, TAB 1 Refill Risperidone (Risperdal) 0.5 Mg Tab 0.5 MG PO BID for Mental Health for 15 Days, #30 TAB 1 Refill Sennosides-Docusate Sodium (Gnp Senna Plus 8.6-50 mg) 8.6 Mg-50 Mg Tab 1 TAB PO BID for Constipation for 15 Days, #30 TAB 1 Refill Continued Medications: Aspirin (Aspirin Low Dose) 81 Mg Chew 81 MG CHEW DAILY for Health for 15 Days, #15 TAB 1 Refill (This prescription has been renewed) Atorvastatin (Atorvastatin) 10 Mg Tab 10 MG PO HS for Cholesterol Management for 15 Days, TAB 1 Refill (This prescription has been renewed) Calcium Carbonate-Vitamin D (Calcium 600+D 200) 600-200 Mg-Unit Tab 1 TAB PO BID for Nutritional Supplement, #90 TAB 0 Refills Donepezil (Donepezil) 10 Mg Tab 10 MG PO HS for Mental Health for 15 Days, TAB 1 Refill (This prescription has been renewed) Ergocalciferol (Ergocalciferol) 50,000 Unit Cap 73548 UNITS PO Q7D for Nutritional Supplement, #8 CAP Escitalopram (Escitalopram) 20 Mg Tab 20 MG PO DAILY for Mental Health for 15 Days, #15 TAB 1 Refill (This prescription has been renewed) Ferrous Sulfate (Ferrous Sulfate) 325 Mg (65 Mg Iron) Tablet 325 MG PO BIDPC for Nutritional Supplement for 15 Days, TAB 1 Refill (This prescription has been renewed) Memantine (Memantine) 10 Mg Tab 10 MG PO BID for Mental Health for 15 Days, #30 TAB 1 Refill (This prescription has been renewed) Walker/Adult/Folding (Walker/Adult/Folding) 1 Mis Mis EA .ROUTE DIRECTED, #1 0 Refills [Dusteride] () 20 MG PO DAILY Discontinued Medications: Quetiapine (Quetiapine) 25 Mg Tab 25 MG PO DAILY, #30 TAB 0 Refills Quetiapine (Seroquel) 50 Mg Tab 50 MG PO BID, #60 TAB 0 Refills Sennosides-Docusate Sodium (Senna S) 8.6-50 Mg Tab Sodium Chloride (Sodium Chloride) 1 Gram Tab 1 GM PO BID for orthostatic hypotension, #60 TAB 0 Refills Discharge Time <= 30 minutes Mental Status Examination Appearance: Appropriate Consciousness: Alert Orientation: Person Motor Activity: Other (No motor abnormalities noted) Speech: Unremarkable Language: Adequate (Mildly rambling) Fund of Knowledge: Inadequate Attention and Concentration: Easily Distracted Memory: Impaired Mood: Appropriate Affect: Appropriate Thought Process & Associations: Other (Slowed) Thought Content: Other (Some poverty of thought) Hallucination Type: None Delusion Type: None Suicidal Ideation: No Suicidal Plan: No Suicidal Intention: No Homicidal Ideation: No Homicidal Plan: No Homicidal Intention: No Insight: Poor (Chronic) Judgment: Poor (Chronic) Discharge/Advance Care Plan Health Problems: (1) Dementia Goals to promote your health * To prevent worsening of your condition and complications * To maintain your health at the optimal level Directions to meet your goals Take your medications as prescribed Follow your dietary instruction Follow activity as directed Keep your appointments as scheduled Take your immunizations and boosters as scheduled If your symptoms worsen call your PCP, if no PCP go to Urgent Care Center or Emergency Room For 21/12 questions related to your inpatient stay or results of tests pending at discharge, please contact Dr. Claudio Spivey at Smoking is Dangerous to Your Health. Avoid second hand smoking Problem Qualifiers (1) Dementia: Qualified Codes: G30.1 - Alzheimer's disease with late onset; F02.81 - Dementia in other diseases classified elsewhere with behavioral disturbance Claudio Spivey MD Nov 12, 2017 09:43
== END 2017-11-12 11:10 | DRG 57 ==
LOC: NEDAMB 12:16 → NEDA 18:45 → H250 19:31
PROVIDERS: ADMIT Psychiatry & Neurology Psychiatry; ATTEND Psychiatry & Neurology Psychiatry
DX: G30.1 Alzheimer's disease with late onset (principal); F01.51 Vascular dementia, unspecified severity, with behavioral disturbance; E11.9 Type 2 diabetes mellitus without complications; D64.9 Anemia, unspecified; E56.9 Vitamin deficiency, unspecified; I10 Essential (primary) hypertension; E78.5 Hyperlipidemia, unspecified; Y04.0XXA Assault by unarmed brawl or fight, initial encounter; F41.8 Other specified anxiety disorders; R53.1 Weakness; I95.1 Orthostatic hypotension; Z87.891 Personal history of nicotine dependence; Z79.84 Long term (current) use of oral hypoglycemic drugs; Z79.82 Long term (current) use of aspirin
CPT/HCPCS: 80048; 80053; 80061; 80307; 81001; 82306; 82550; 82607; 83036; 84100; 84443; 85025; 93005; 99285